=== PATIENT | male | born 1945 | race Caucasian/White ===

== ENCOUNTER → 2016-10-06 | Outpatient (CLI) | payer OTHER ==
[2016-01-31 22:04] VITALS: BP 166/93
--- NOTE | 2016-10-06 09:15 | VAS ---
Examination: Right leg DVT study Clinical History: Pain in right thigh. Technique: Duplex Doppler ultrasound utilizing kerns scale imaging and spectral analysis with color/d uplex imaging was used to evaluate the deep venous system of the right leg from the calf to the groi n. Comparison: None available. Findings: There is normal flow, compressibility and augmentation of the common femoral-, femoral-, popliteal-, and posterior tibial veins. The peroneal and anterior tibial veins were not interrogated. There is no sonographic evidence of a deep venous thrombosis in the right leg. Incidental note is made of a 1.7 x 1.6 x 3.2 cm ill-defined hypoechoic area in the right inguinal re gion, of uncertain etiology. Findings could represent an area of hemorrhage or a mass lesion. A CT o f the Pelvis, with and without intravenous contrast, is recommended for proper characterization of t his finding. Impression: 1. There is no sonographic evidence of a deep venous thrombosis in the right leg. 2. Incidental note is made of a 1.7 x 1.6 x 3.2 cm ill-defined hypoechoic area in the right inguinal region, of uncertain etiology. Findings could represent an area of hemorrhage or a mass lesion. A C T of the Pelvis, with and without intravenous contrast, is recommended for proper characterization o f this finding. Reported By:
== END ==
LOC: RAD 08:44
PROVIDERS: ATTEND Internal Medicine
DX: M79.651 Pain in right thigh (principal)
CPT/HCPCS: 93971

== ENCOUNTER → 2016-10-22 | Outpatient (CLI) | payer OTHER ==
[2016-01-31 22:04] VITALS: BP 166/93
--- NOTE | 2016-10-25 09:45 | CT ---
CT OF THE PELVIS WITHOUT CONTRAST CLINICAL INDICATION: Question of right groin mass on ultrasound PROCEDURE: Non contrast images through the pelvis were obtained. Oral contrast was also administered . Dose reduction techniques including Automated Exposure Control (AEC) and adjustment of mA and kV w ere utlized. COMPARISON: Ultrasound 10/06/2016 FINDINGS: CT Pelvis with contrast: The bladder is normal in appearance. Prostate is not enlarged. No suspiciou s pelvic lymph nodes. No free fluid or fluid collections. There are fatty replaced lymph nodes withi n the groin bilaterally. No abnormal soft tissue masses. No abnormality in the region of palpable ma rker No aggressive osseous lesions. IMPRESSION: 1. No abnormal soft tissue masses. Normal fatty replaced lymph nodes in the inguinal regions. No abn ormality in the region of palpable marker. Reported By:
== END ==
LOC: RAD 09:40
PROVIDERS: ATTEND Internal Medicine
DX: R93.8 Abnormal findings on diagnostic imaging of other specified body structures (principal); M79.651 Pain in right thigh; R19.09 Other intra-abdominal and pelvic swelling, mass and lump
CPT/HCPCS: 36415; 72192; 82565; 84520

== ENCOUNTER 2019-07-22 09:47 | Inpatient (IN) ==
[2019-07-22 10:04] VITALS: BMI 31.3
[2019-07-22 10:31] LABS: BASOPHILS # (AUTO) 0.1 X10^3/uL (0.0-0.1); BASOPHILS % (AUTO) 0.5 % (0.2-1.0); EOSINOPHILS # (AUTO) 0.1 x10^3/uL (0.0-0.2); EOSINOPHILS % (AUTO) 0.8 % (0.9-2.9); HEMATOCRIT 44.5 % (42.0-54.0); HEMOGLOBIN 15.3 g/dL (13.5-18.0); LYMPHOCYTES # (AUTO) 0.9 X10^3/uL (1.3-2.9); LYMPHOCYTES % (AUTO) 7.8 % (21.0-51.0); MEAN CORPUSCULAR HEMOGLOBIN 32.1 pg (27.0-34.0); MEAN CORPUSCULAR HGB CONC 34.4 g/dL (33.0-35.0); MEAN CORPUSCULAR VOLUME 93.4 fL (80.0-100.0); MEAN PLATELET VOLUME 6.9 fL (7.4-11.0); MONOCYTES # (AUTO) 0.5 x10^3/uL (0.3-0.8); MONOCYTES % (AUTO) 4.4 % (0.0-13.0); NEUTROPHILS # (AUTO) 10.2 x10^3/uL (2.2-4.8); NEUTROPHILS % (AUTO) 86.5 % (42.0-75.0); PLATELET COUNT 171 X10^3/uL (150.0-450.0); RED BLOOD COUNT 4.77 X10^6/uL (4.7-6.0); RED CELL DISTRIBUTION WIDTH 12.7 % (11.6-16.5); WHITE BLOOD COUNT 11.8 X10^3/uL (3.6-10.0)
[2019-07-22] MEDS ORDERED: NS 1000 ML 1,000 ML IV ONE (10:39)
[2019-07-22 10:41] LABS: ALANINE AMINOTRANSFERASE 48 Units/L (12-78); ALBUMIN 3.4 g/dL (3.4-5.0); ALKALINE PHOSPHATASE 78 Units/L (46-116); ASPARTATE AMINO TRANSFERASE 30 Units/L (15-37); BLOOD UREA NITROGEN 14 mg/dL (7-18); CALCIUM 8.4 mg/dL (8.5-10.1); CARBON DIOXIDE 28.2 mmol/L (21-32); CHLORIDE 99 mmol/L (98-107); COR NA(FOR HYPERGLY) 141 mmol/L (136-145); CREATININE 1.48 mg/dL (0.70-1.30); LIPASE 169 Units/L (73-393); SODIUM 136 mmol/L (136-145); TOTAL PROTEIN 7.1 g/dL (6.4-8.2); eGFR NON BLACK RACES 50 (>60)
[2019-07-22] MEDS ORDERED: HumuLIN R SUBCUT ONE (10:41)
[2019-07-22] MEDS ORDERED: NS 500 ML IV 500 ML IV ONE (10:46)
[2019-07-22] MEDS ORDERED: HumuLIN R ONE (10:48)
[2019-07-22 11:07] LABS: BILIRUBIN,URINE NEGATIVE (NEGATIVE); BLOOD/HEMOGLOBIN,URINE 1+ (NEGATIVE); GLUCOSE, URINE 4+ (NEGATIVE); KETONES,URINE NEGATIVE (NEGATIVE); LEUKOCYTE ESTERASE ,URINE NEGATIVE (NEGATIVE); NITRITES,URINE NEGATIVE (NEGATIVE); PROTEIN,URINE 2+ (NEGATIVE); UROBILINOGEN,URINE NORMAL (NORMAL)
[2019-07-22 11:16] LABS: APPEARANCE,URINE CLEAR (CLEAR); COLOR,URINE YELLOW (YELLOW); RBC,URINE 0-2 /HPF (0-3)
[2019-07-22 11:17] LABS: BACTERIA,URINE NEGATIVE /HPF (NEGATIVE); SQUAMOUS EPITHELIAL CELL,UR RARE /HPF (NEGATIVE)
[2019-07-22 11:40] LABS: CRYPTOSPORIDIUM PARVUM ANTIGEN NEGATIVE (NEGATIVE); GIARDIA LAMBLIA ANTIGEN NEGATIVE (NEGATIVE)
--- NOTE | 2019-07-22 13:30 | CT ---
HISTORYAbdominal pain with elevated blood sugarSTUDYABDOMEN/PELVIS WITH CONCOMPARISONNone availableTECHNIQUEMultiple axial images of the abdomen and pelvis were obtained from the lung bases to the pubic symphysis after the administration of IV contrast. Dose reduction techniques including Automated Exposure Control (AEC) and adjustment of mA and kV were utilized.FINDINGS[The lung bases are clear. No focal hepatic lesion is identified. There is gallbladder distention, increased mucosal enhancement and submucosal edema within the gallbladder consistent with cholecystitis. No calcified stone identified. Bile ducts are normal in caliber. The spleen, pancreas and adrenal glands are normal. Neither kidney demonstrates evidence of nephrolithiasis, hydronephrosis or mass. Upper GI tract is without evidence of mass or obstruction. Urinary bladder is normal. Prostate gland is normal. The rectum is normal. There is mild bowel wall thickening involving the sigmoid colon with increased fluid distention of the distal colon. The terminal ileum and appendix are normal. Abdominal aorta normal in caliber with scattered calcified atherosclerotic disease. No enlarged abdominal pelvic free fluid. Small amount of layering fluid noted within the pelvis. Review of bone windows demonstrates a grade 2 anterolisthesis of L5 secondary to bilateral spondylolysis causing moderate severe spinal canal and neural foraminal stenosis. No acute osseous abnormality.IMPRESSIONGallbladder wall edema, submucosal enhancement and gallbladder distention are highly suspicious for acute cholecystitis. No calcified gallstone identified. Correlation with right upper quadrant sonogram can be performed for confirmation as clinically warranted.Mild distal colonic colitis/diverticulitis.Grade 2 anterolisthesis of L5 secondary to bilateral L5 spondylolysis causes moderate severe spinal canal and neural foraminal stenosisElectronically signed by: SINAN JONES (Jul 22, 2019 13:29:04)
--- NOTE | 2019-07-22 15:22 | DR.ABDMALE ---
HPI Time seen Time Seen by Provider: 07/22/19 10:09 PCP Primary Care Physician: [place] HPI comment HPI Comment: pt has had 2 bouts of c.diff. On his 2nd regimen of vancomycin. Also prescribed doxycycline. Feels terrible with weakness and abd pain. Complaint Chief Complaint:: PT C/O ABD PAIN AND > BLOOD SUGAR, ( 300'S ) THAT STARTED AT 0300 THIS ,,BR ( PT C/O PAIN IS SHARP AND ACHING TO HIS MID ABD ) PT C/O HAVING A CJ-ANAL CYST THAT RUTURED ,BR Self Treatment fo Chief Complaint: ABX,, Reviewed Nurses Notes Review: Yes Source History provided by:: pt and Mode of arrival Mode of Arrival: Ambulatory Timing Onset of Chief Complaint: 07/21/19 Came on: Gradually Duration Duration: Weeks Location Location: Diffuse Severity Severity: Moderate Quality Quality: Aching and Cramping Context Onset: Unknown History of: None Modifying factors Worsening Factors: Nothing Improving Factors: Nothing Associated signs and symptoms Associated Signs and Symptoms: Nausea and Diarrhea; denies Vomiting and Dysuria PMH PMH Past Medical History: Yes Past Medical History: Diabetes and Hypertension Past Surgical History: Yes Surgical History: Ortho Surgery Family History History of Family Medical Conditions: No Social History Does patient currently use any type of tobacco product: No Have you used tobacco products in the last 12 months: No Type of Tobacco Use: None Does any household member use tobacco: No Alcohol Use: None Do you use any recreational Drugs:: No Lives With: Spouse Lives Where: Home infectious screening In the last 2 months have you had wt loss of >10#?: NO Have you had fever, night sweats or hemotysis?: No Have you traveled outside the country in the last 6 months?: No Isolation: Standard ROS Review of Systems Constitutional: No Symptoms Reported; negative Fever Respiratoy: No Symptoms Reported Cardiovascular: No Symptoms Reported Gastrointestinal/Abdominal: See HPI, Abdominal Pain and Diarrhea; negative Vomiting Genitourinary: No Symptoms Reported Neurological: No Symptoms Reported Musculoskeletal: No Symptoms Reported All Other Systems: Reviewed and Negative PE Vital Signs Vital Signs: Temp Pulse Resp BP BP Pulse Ox 07/22/19 09:59 98.0 F 73 18 165/80 95 06/24/19 14:27 127/81 General Limitations: No Limitations General Appearance: Alert, In No Apparent Distress and Other (is uncomfortable) Eyes Eye exam: Normal Appearance and EOMI; negative Scleral Icterus ENT ENT Exam: Mucous Membranes Dry Neck Neck Exam: Full ROM Chest Chest Inspection: Symmetric Chest Wall Rise Respiratory Respiratory Exam: Normal Lung Sounds Bilat Cardiovascular Cardiovascular Exam: Regular Rate and Normal Rhythm Abdominal Exam Abdominal Exam: Soft, Tenderness and Hyperactive Bowel Sounds; negative Guarding, Rebound and Rigidity Rectal Rectal Exam: Hemorrhoids and Other (there is a fairly large skin fold perianally, likely an abscess that has drained aand is not currently infected.) Back Back Exam: Normal Inspection and Full ROM Extremeties Extremities Exam: Normal Inspection and Full ROM Neurologic Neurological Exam: Alert and Oriented X3 Skin Skin Exam: Warm and Normal Color; negative Rash MDM Differential Diagnosis Differential Diagnosis: Diverticular disease and Inflammatory BD Other differential diagnosis: colitis COURSE Treatment Treatment: pt admitted for sigmoid diverticulitis, colitis, chlocystitis, and c.diff Reevaluation 1st: Unchanged ROR Labs Reviewed Laboratory Results Reviewed?: Yes Result Diagrams: 07/22/19 10:23 07/22/19 10:23 Laboratory: 07/22/19 10:30 Stool - Final WBC 11.8 X10^3/uL (3.6-10.0) H 07/22/19 10:23 RBC 4.77 X10^6/uL (4.7-6.0) 07/22/19 10:23 Hgb 15.3 g/dL (13.5-18.0) 07/22/19 10:23 Hct 44.5 % (42.0-54.0) 07/22/19 10:23 MCV 93.4 fL (80.0-100.0) 07/22/19 10:23 MCH 32.1 pg (27.0-34.0) 07/22/19 10:23 MCHC 34.4 g/dL (33.0-35.0) 07/22/19 10:23 RDW 12.7 % (11.6-16.5) 07/22/19 10:23 Plt Count 171 X10^3/uL (150.0-450.0) 07/22/19 10:23 MPV 6.9 fL (7.4-11.0) L 07/22/19 10:23 Neut % (Auto) 86.5 % (42.0-75.0) H 07/22/19 10:23 Lymph % (Auto) 7.8 % (21.0-51.0) L 07/22/19 10:23 [place] % (Auto) 4.4 % (0.0-13.0) 07/22/19 10:23 Eos % (Auto) 0.8 % (0.9-2.9) L 07/22/19 10:23 Baso % (Auto) 0.5 % (0.2-1.0) 07/22/19 10:23 Neut # (Auto) 10.2 x10^3/uL (2.2-4.8) H 07/22/19 10:23 Lymph # (Auto) 0.9 X10^3/uL (1.3-2.9) L 07/22/19 10:23 [place] # (Auto) 0.5 x10^3/uL (0.3-0.8) 07/22/19 10:23 Eos # (Auto) 0.1 x10^3/uL (0.0-0.2) 07/22/19 10:23 Baso # (Auto) 0.1 X10^3/uL (0.0-0.1) 07/22/19 10:23 Absolute Nucleated RBC 0.0 /100WBC 07/22/19 10:23 Sodium 136 mmol/L (136-145) 07/22/19 10:23 Corrected Sodium 141 mmol/L (136-145) 07/22/19 10:23 Potassium 3.8 mmol/L (3.5-5.1) 07/22/19 10:23 Chloride 99 mmol/L (98-107) 07/22/19 10:23 Carbon Dioxide 28.2 mmol/L (21-32) 07/22/19 10:23 BUN 14 mg/dL (7-18) 07/22/19 10:23 Creatinine 1.48 mg/dL (0.70-1.30) H 07/22/19 10:23 Est GFR (MDRD) Af Amer 60 (>60) 07/22/19 10:23 Est GFR (MDRD) Non-Af 50 (>60) L 07/22/19 10:23 Glucose 290 mg/dL (65-99) H 07/22/19 10:23 POC Glucose (mg/dL) 271 mg/dL (65-99) H 07/22/19 10:22 Calcium 8.4 mg/dL (8.5-10.1) L 07/22/19 10:23 Corrected Calcium TNP 07/22/19 10:23 Total Bilirubin 1.00 mg/dL (0.2-1.0) 07/22/19 10:23 AST 30 Units/L (15-37) 07/22/19 10:23 ALT 48 Units/L (12-78) 07/22/19 10:23 Alkaline Phosphatase 78 Units/L (46-116) 07/22/19 10:23 Total Protein 7.1 g/dL (6.4-8.2) 07/22/19 10:23 Albumin 3.4 g/dL (3.4-5.0) 07/22/19 10:23 Globulin 3.7 g/dL (2.5-4.5) 07/22/19 10:23 Albumin/Globulin Ratio 0.9 Ratio (1.1-2.1) L 07/22/19 10:23 Lipase 169 Units/L (73-393) 07/22/19 10:23 Specimen Type Clean catch urine 07/22/19 10:30 Urine Color Yellow (YELLOW) 07/22/19 10:30 Urine Appearance Clear (CLEAR) 07/22/19 10:30 Urine pH 5.0 (5.0 - 8.0) 07/22/19 10:30 Ur Specific [place] 1.015 (1.000-1.030) 07/22/19 10:30 Urine Protein 2+ (NEGATIVE) 07/22/19 10:30 Urine Glucose (UA) 4+ (NEGATIVE) 07/22/19 10:30 Urine Ketones Negative (NEGATIVE) 07/22/19 10:30 Urine Occult Blood 1+ (NEGATIVE) 07/22/19 10:30 Urine Nitrite Negative (NEGATIVE) 07/22/19 10:30 Urine Bilirubin Negative (NEGATIVE) 07/22/19 10:30 Urine Urobilinogen Normal (NORMAL) 07/22/19 10:30 Ur Leukocyte Esterase Negative (NEGATIVE) 07/22/19 10:30 Urine RBC 0-2 /HPF (0-3) 07/22/19 10:30 Urine WBC None seen /HPF (0-5) 07/22/19 10:30 Ur Squamous Epith Cells Rare /HPF (NEGATIVE) 07/22/19 10:30 Urine Bacteria Negative /HPF (NEGATIVE) 07/22/19 10:30 Ur Culture Indicated? No/not indicated 07/22/19 10:30 Stool Description 20g,brown,unformed 07/22/19 10:30 Stool Description 20g,brown,unformed 07/22/19 10:30 Stl Occult Blood (IFOB) Positive (NEGATIVE) A 07/22/19 10:30 Stool for White Cells Positive (NEGATIVE) A 07/22/19 10:30 Stl C. diff Tox B Gene Negative (NEGATIVE) 07/22/19 10:30 Stl C. diff 027-NAP1-BI Negative (NEGATIVE) 07/22/19 10:30 Cryptosporid parvum Ag Negative (NEGATIVE) 07/22/19 10:30 Giardia lamblia Ag Negative (NEGATIVE) 07/22/19 10:30 XRAY XRAY Findings: CT abd shows colitis sigmoid and cholecystitis Opioid Opioid Risk Tool Age (Alessio box if 16-45): No History of Preadolescent Sexual Abuse: No Total: 0 Total Score Risk Category: Low Risk Copyright: Amilcar MONTERO predicting aberrant behaviors Instructions Forms: Excuse From Work Patient Portal ADDITIONAL NOTES Additional Notes Additional Notes: pt admitted as inpatient for diverticulitis, cholecystitis, c.diff diarrhea, colitis
[2019-07-22] MEDS ORDERED: FORTAZ or TAZICEF VIAL INJ ONE (15:46)
[2019-07-22] MEDS ORDERED: NS 100 ML IV 100 ML IV ONE (15:46)
[2019-07-22] MEDS ORDERED: NS 1000 ML 1,000 ML ONE (15:50)
[2019-07-22] MEDS: FORTAZ or TAZICEF VIAL INJ 1 G in NS 100 ML IV + SPIKE MINIBAG* 100 ML IV SCH ×2 (15:52→22:00)
[2019-07-22] MEDS: NS 1000 ML 1,000 ML IV SCH (15:52)
[2019-07-22] MEDS: VANCOMYCIN 125 MG PO SCH ×2 (17:09→22:30)
[2019-07-22] MEDS ORDERED: AFLURIA II4 or FLUARIX II4 IM ONE (17:23)
[2019-07-22] MEDS: HumuLIN R SC PRN (22:00)
[2019-07-23] MEDS: FORTAZ or TAZICEF VIAL INJ 1 G in NS 100 ML IV + SPIKE MINIBAG* 100 ML IV SCH ×3 (05:06→20:53)
[2019-07-23] MEDS: VANCOMYCIN 125 MG PO SCH ×4 (05:06→22:30)
[2019-07-23 05:48] LABS: BASOPHILS # (AUTO) 0.1 X10^3/uL (0.0-0.1); BASOPHILS % (AUTO) 0.9 % (0.2-1.0); EOSINOPHILS # (AUTO) 0.2 x10^3/uL (0.0-0.2); EOSINOPHILS % (AUTO) 3.3 % (0.9-2.9); HEMATOCRIT 38.2 % (42.0-54.0); HEMOGLOBIN 13.5 g/dL (13.5-18.0); LYMPHOCYTES # (AUTO) 1.4 X10^3/uL (1.3-2.9); LYMPHOCYTES % (AUTO) 20.7 % (21.0-51.0); MEAN CORPUSCULAR HEMOGLOBIN 33.2 pg (27.0-34.0); MEAN CORPUSCULAR HGB CONC 35.3 g/dL (33.0-35.0); MEAN PLATELET VOLUME 7.6 fL (7.4-11.0); MONOCYTES # (AUTO) 0.5 x10^3/uL (0.3-0.8); MONOCYTES % (AUTO) 7.4 % (0.0-13.0); NEUTROPHILS # (AUTO) 4.6 x10^3/uL (2.2-4.8); NEUTROPHILS % (AUTO) 67.7 % (42.0-75.0); PLATELET COUNT 146 X10^3/uL (150.0-450.0); RED BLOOD COUNT 4.06 X10^6/uL (4.7-6.0); RED CELL DISTRIBUTION WIDTH 12.7 % (11.6-16.5); WHITE BLOOD COUNT 6.7 X10^3/uL (3.6-10.0)
[2019-07-23 06:04] LABS: ALBUMIN 2.4 g/dL (3.4-5.0); CALCIUM 7.5 mg/dL (8.5-10.1); CARBON DIOXIDE 24.5 mmol/L (21-32); COR CA(FOR HYPOALB) 8.8 mg/dL (8.5-10.1); CREATININE 1.48 mg/dL (0.70-1.30); TOTAL PROTEIN 5.4 g/dL (6.4-8.2)
[2019-07-23] MEDS: HumuLIN R SC PRN (06:17)
[2019-07-23] MEDS ORDERED: POTASSIUM CHL 40 MEQ/NS 0.45% 500 ML IV PRN (06:18)
[2019-07-23] MEDS ORDERED: K-RIDER 10 MEQ/NS 100 ML 10 MEQ/100 ML BAG IV PRN (06:18)
[2019-07-23] MEDS ORDERED: POTASSIUM CHL 60 MEQ/NS 0.45% 500 ML IV PRN (06:18)
[2019-07-23] MEDS ORDERED: MICRO K EXTEN CAP 10 MEQ PO PRN (06:18)
[2019-07-23] MEDS ORDERED: K-DUR TAB 20 MEQ PO PRN (06:18)
[2019-07-23] MEDS ORDERED: KLOR-CON PO PRN (06:18)
[2019-07-23] MEDS ORDERED: POTASSIUM CHLORIDE LIQ 20 MEQ UDC PO PRN (06:18)
[2019-07-23] MEDS ORDERED: DIPRIVAN VIAL ONE (08:22)
[2019-07-23] MEDS ORDERED: SUPRANE ONE (08:22)
[2019-07-23] MEDS ORDERED: NORCURON INJ 10 MG VIAL ONE (08:22)
[2019-07-23] MEDS ORDERED: LTA KIT LIDOCAINE 4% ONE (08:22)
[2019-07-23] MEDS: LOVENOX INJ 40 MG SYR SC SCH (08:22)
[2019-07-23] MEDS ORDERED: ROBINUL ONE (08:22)
[2019-07-23] MEDS ORDERED: ZOFRAN INJ 4 MG VIAL ONE (08:22)
[2019-07-23] MEDS ORDERED: XYLOCAINE 2 % (PLAIN) ONE (08:22)
[2019-07-23] MEDS ORDERED: NEOSTIGMINE INJ ONE (08:22)
[2019-07-23] MEDS ORDERED: QUELICIN (OR ANECTINE) ONE (08:22)
[2019-07-23] MEDS ORDERED: VERSED ONE (08:22)
[2019-07-23] MEDS: NS 1000 ML 1,000 ML IV SCH ×3 (08:26→17:16)
--- NOTE | 2019-07-23 08:53 | DR.H&P ---
H&P - History & Physical for Day of: H&P Date: 07/22/19 - Chief Complaint Chief Complaint: ABDOMINAL PAIN, INCREASED BLOOD GLUCOSE LEVELS - History of Present Illness History of Present Illness: IS A 74 YEAR OLD PATIENT OF OURS. HE P RESENTED TO THE ER WITH COMPLAINTS OF ABDOMINAL PAIN AND INCREASED BLOOD GLUCOSE LEVELS. HE REPORTS THAT HIS BLOOD GLUCOSE HAS BEEN GREATER THAN 300 FOR THE PAST TWO DAYS. HE DESCRIBES PAIN SHARP, ACHING, AND IS AT THE MID ABDOMEN. HE REPORTS HAVING A PERIANAL CYST THAT RUPTURED. HE WAS ALSO DIAGNOSED WITH C.DIFF ON 07/13/19. HE HAS BEEN TAKING PO VANCOMYCIN SINCE 07/13. ASSOCIATED SYMPTOMS INCLUDE NAUSEA AND DIARRHEA. HE DENIES VOMITING. ON ARRIVAL, VITALS WERE 98.0-73-18-95%-165/80. LABS WERE OBTAINED. ABNORMAL LAB VALUES INCLUDE THE FOLLOWING: WBC 11.8, CREATININE 1.48, GLUCOSE 290, CALCIUM 8.4. URINALYSIS IS UNREMARKABLE. STOOL IS POSITIVE FOR OCCULT BLOOD AND WHITE CELLS. STOOL CULTURE IS POSTIVE FOR CAMYLOBACTER. AN ABDOMEN/PELVIS CT WITH CONTRAST WAS OBTAINED AND REVEALED: Gallbladder wall edema, submucosal enhancement and gallbladder distention are highly suspicious for acute cholecystitis. No calcified gallstone identified. Correlation with right upper quadrant sonogram can be performed for confirmation as clinically warranted. Mild distal colonic colitis/diverticulitis. Grade 2 anterolisthesis of L5 secondary to bilateral L5 spondylolysis causes moderate severe spinal canal and neural foraminal stenosis. HE WAS GIVEN A NORMAL SALINE BOLUS, HUMULIN R 4 UNITS X 1, AND FORTAZ 1G IV X 1 DOSE IN THE ER. HE WAS ADMITTED FOR FURTHER EVALUATION AND TREATMENT OF DIVERTICULTIS, COLIITS, CHOLECYSTITIS, AND C DIFF DIARRHEA. WE STARTED NORMAL SALINE AT 125ML/HR, LEVAQUIN 500MG IV DAILY, FORTAZ 1G IV Q12H, HUMULIN R SLIDIDNG SCALE, LOVENOX 40MG SC DAILY, AND THE POTASSIUM AND MAGNESIUM PROTOCOLS. WE CONSULTED WITH , GENERAL SURGEON REGUARDING PATIENTS SYMPTOMS AND TREATMENT. HE RECOMMENDS A GALLBLADDER ULTRASOUND AND POSSIBLE LAPCHOLE, DEPENDING ON FINDINGS OF ULTRASOUND. WE DISCUSSED PLAN OF CARE WITH PATIENT. WE ARE ALL IN AGREEMENT WITH PLANS. TIME SPENT WITH PHYSICIAN AND PATIENT WAS GREATER THAN 16 MINUTES. OTHERWISE, WE PLAN TO FOLLOW UP WITH AM LABS AND CONTINUE TO MONITOR. - Past Medical History Past Medical History: Hypertension, Diabetes - Past Surgical History Surgical History: Ortho Surgery - Social History Does patient currently use any type of tobacco product: No Have you used tobacco products in the last 12 months: No Type of Tobacco Use: None Does any household member use tobacco: No Alcohol Use: None Drug Use: None - Medications Home Medications: No Known Drug Allergies Allergy (Verified 07/22/19 09:59) CONTINUE taking the following medications Lactobacillus acidoph-pectin 1 cap PO TID 07/22/19 [History] allopurinol 100 mg PO DAILY 07/22/19 [History] amlodipine 5 mg PO DAILY 07/22/19 [History] dicyclomine 10 mg PO BID PRN 07/22/19 [History] doxycycline monohydrate 100 mg PO BID 07/22/19 [History] glipizide 10 mg PO BID 07/22/19 [History] vancomycin 125 mg PO Q6H 07/22/19 [History] - Review of Systems Constitutional: Weakness Eyes: No Symptoms Reported ENT: No Symptoms Reported Respiratory: No Symptoms Reported Cardiovascular: No Symptoms Reported Gastrointestinal: See HPI, Nausea, Abdominal Pain, Diarrhea. denies: Vomiting Genitourinary: No Symptoms Reported Musculoskeletal: No Symptoms Reported Skin: No Symptoms Reported Neurological: Weakness - Physical Exam Vital Signs: Temperature 99.2 F Pulse Rate [Left Brachial] 76 Pulse Rate 73 Respiratory Rate 20 Blood Pressure [Left Arm] 135/74 Blood Pressure 165/80 O2 Sat by Pulse Oximetry 98 Oriented: Normal Eyes: Normal Ear: Normal Nose: Normal Throat: Normal Respiratory: Diminished Throughout Cardiovascular: Normal : Normal Auscultation: Bowel Sounds: Normal Palpation: Normal Tenderness: Diffuse, Moderate. negative: Rebound, Guarding, Rigidity Skin: Normal Musculoskeletal: Normal Psychiatric: Normal Mood Description: Calm Affect: Normal Speech Pattern: Clear - Assessment/Plan (1) Diverticulitis Status: Acute Plan: ADMIT, NORMAL SALINE AT 125ML/HR, LEVAQUIN 500MG IV DAILY, FORTAZ 1G IV Q12H, HUMULIN R SLIDIDNG SCALE, LOVENOX 40MG SC DAILY, SURGICAL CONSULT, CONTINUE TO MONITOR (2) Cholecystitis Status: Acute (3) C. difficile diarrhea Status: Acute (4) Colitis Status: Acute - Allergies Allergies/Adverse Reactions: Allergies Allergy/AdvReac Type Severity Reaction Status Date / Time No Known Drug Allergies Allergy Verified 07/22/19 09:59
[2019-07-23] MEDS ORDERED: LEVAQUIN PREMIX IV 500 MG 500 MG/100 ML BAG IV SCH (09:00)
[2019-07-23] MEDS: MAGNESIUM SULFATE 1 GRAM/100 mL PREMIX 1 GM/100 ML BAG IV PRN ×2 (11:16→12:54)
--- NOTE | 2019-07-23 13:32 | US ---
HISTORYAbdominal pain, abnormal gallbladder on CTSTUDYGallbladder sonogramTechnique: Multiple grayscale sonographic images were obtained.COMPARISONCT abdomen pelvis 07/22/2019FINDINGSThe liver was normal in size and configuration but increased in echogenicity suggestive of some element of fatty infiltration. No cysts, masses, or biliary ductal dilatation is identified. No gallstones are identified within the gallbladder. The there does appear to be some sludge present. There is some gallbladder wall thickening present. The common duct measured 2.7 mm. The right kidney was unobstructed and measured 10.3 cm in length. No solid masses, hydronephrosis, stones, or perinephric fluid collections. The pancreas was not well visualized.IMPRESSIONModerate gallbladder wall thickening but without visible calculi. Some sludge is present. If acute cholecystitis remains a clinical consideration nuclear medicine biliary scan is recommended for further evaluation.Electronically signed by: RAMEZ LYNN (Jul 23, 2019 13:30:43)
[2019-07-23] MEDS: FLAGYL IV PREMIX 500 MG BAG 500 MG/100 ML BAG IV SCH ×2 (14:01→22:00)
[2019-07-23] MEDS ORDERED: NS IRRIGATION 3000 ML ONE (15:13)
[2019-07-23] MEDS ORDERED: FENTANYL INJ 250 mcg ONE (16:46)
[2019-07-23] MEDS ORDERED: ANCEF 1 GRAM IV PREMIX* 1 G/50 ML BAG IV ONE (16:48)
[2019-07-23] MEDS ORDERED: LR 1000 ML IV 1,000 ML IV ONE (16:52)
[2019-07-23] MEDS ORDERED: BACTROBAN TOPICAL OINT ONE (18:21)
[2019-07-23] MEDS: DILAUDID INJ IVP PRN ×4 (18:38→20:53)
[2019-07-23] MEDS ORDERED: DILAUDID INJ ONE ×2 (18:38→18:58)
[2019-07-23] MEDS ORDERED: PHENERGAN INJ 25 MG IM PRN (18:42)
[2019-07-23] MEDS ORDERED: BENADRYL INJ 50 MG VIAL IVP PRN (18:42)
[2019-07-23] MEDS ORDERED: REGLAN INJ 10 MG VIAL IVP PRN (18:42)
[2019-07-23] MEDS ORDERED: ZOFRAN INJ 4 MG VIAL IVP PRN (18:42)
[2019-07-24] MEDS: DILAUDID INJ IVP PRN ×6 (02:25→22:50)
[2019-07-24] MEDS: VANCOMYCIN 125 MG PO SCH ×4 (05:51→22:30)
[2019-07-24] MEDS: FLAGYL IV PREMIX 500 MG BAG 500 MG/100 ML BAG IV SCH ×3 (05:52→22:00)
[2019-07-24 06:29] LABS: BASOPHILS % (AUTO) 0.6 % (0.2-1.0); EOSINOPHILS # (AUTO) 0.1 x10^3/uL (0.0-0.2); EOSINOPHILS % (AUTO) 1.7 % (0.9-2.9); HEMATOCRIT 37.4 % (42.0-54.0); HEMOGLOBIN 12.9 g/dL (13.5-18.0); MEAN CORPUSCULAR HEMOGLOBIN 32.5 pg (27.0-34.0); MEAN CORPUSCULAR HGB CONC 34.6 g/dL (33.0-35.0); MONOCYTES # (AUTO) 0.4 x10^3/uL (0.3-0.8); MONOCYTES % (AUTO) 6.2 % (0.0-13.0); NEUTROPHILS % (AUTO) 76.5 % (42.0-75.0); PLATELET COUNT 143 X10^3/uL (150.0-450.0); RED BLOOD COUNT 3.98 X10^6/uL (4.7-6.0); RED CELL DISTRIBUTION WIDTH 12.6 % (11.6-16.5); WHITE BLOOD COUNT 6.6 X10^3/uL (3.6-10.0)
[2019-07-24 06:48] LABS: ALANINE AMINOTRANSFERASE 43 Units/L (12-78); ALBUMIN 2.3 g/dL (3.4-5.0); ALKALINE PHOSPHATASE 47 Units/L (46-116); ASPARTATE AMINO TRANSFERASE 41 Units/L (15-37); BLOOD UREA NITROGEN 12 mg/dL (7-18); CALCIUM 7.4 mg/dL (8.5-10.1); CARBON DIOXIDE 24.8 mmol/L (21-32); CHLORIDE 105 mmol/L (98-107); COR CA(FOR HYPOALB) 8.8 mg/dL (8.5-10.1); COR NA(FOR HYPERGLY) 141 mmol/L (136-145); CREATININE 1.37 mg/dL (0.70-1.30); SODIUM 139 mmol/L (136-145); TOTAL PROTEIN 5.4 g/dL (6.4-8.2); eGFR NON BLACK RACES 54 (>60)
[2019-07-24] MEDS ORDERED: LEVAQUIN PREMIX IV 250 MG 250 MG/50 ML BAG IV SCH (09:00)
[2019-07-24] MEDS: LOVENOX INJ 40 MG SYR SC SCH (09:09)
[2019-07-24] MEDS: NS 1000 ML 1,000 ML IV SCH ×3 (09:10→17:08)
[2019-07-24] MEDS: FORTAZ or TAZICEF VIAL INJ 1 G in NS 100 ML IV + SPIKE MINIBAG* 100 ML IV SCH (09:11)
[2019-07-24] MEDS: VIBRAMYCIN 100 MG in D5W 250 ML IV 250 ML IV SCH ×2 (12:17→22:00)
[2019-07-24] MEDS ORDERED: FENTANYL INJ 250 mcg ONE (13:32)
--- NOTE | 2019-07-24 15:07 | DR.PROGNOT ---
Hospital Progress Notes - Progress Note for Day of: Progress Note Date: 07/24/19 - Chief Complaint Chief Complaint: PO lap gigi lysis of adhesions . lab work was good . afebrile and tolerating diet well . ADELE was removed . - Past Medical Family Social History Past Med/Fam/Surg Hx: No changes since H&P Allergies: Allergies No Known Drug Allergies Allergy (Verified 07/22/19 09:59) - Review Of Systems ROS: No change since H&P - Vital Signs Vital Signs: Temperature 98.8 F Pulse Rate [Left Brachial] 71 Pulse Rate 60 Respiratory Rate 20 Blood Pressure [Left Arm] 138/75 Blood Pressure 163/85 O2 Sat by Pulse Oximetry 95 - Physical Exam Oriented: Normal Eyes: Normal Ear: Normal Nose: Normal Throat: Normal Cardiovascular: Normal : Normal GI:Auscultation: Normal GI:Palpation: Normal GI: Tenderness: Diffuse, Moderate. negative: Rebound, Guarding, Rigidity Skin: Normal Musculoskeletal: Normal Psychiatric: Normal Mood Description: Calm Affect: Normal Speech Pattern: Clear, Appropriate - Laboratory and Diagnostics Result Diagrams: 07/24/19 05:36 07/24/19 05:36 Labs: 07/22/19 10:30 Stool Stool Culture - Final 07/22/19 10:30 Stool - Final Laboratory WBC 6.6 X10^3/uL (3.6-10.0) 07/24/19 05:36 RBC 3.98 X10^6/uL (4.7-6.0) L 07/24/19 05:36 Hgb 12.9 g/dL (13.5-18.0) L 07/24/19 05:36 Hct 37.4 % (42.0-54.0) L 07/24/19 05:36 MCV 94.0 fL (80.0-100.0) 07/24/19 05:36 MCH 32.5 pg (27.0-34.0) 07/24/19 05:36 MCHC 34.6 g/dL (33.0-35.0) 07/24/19 05:36 RDW 12.6 % (11.6-16.5) 07/24/19 05:36 Plt Count 143 X10^3/uL (150.0-450.0) L 07/24/19 05:36 MPV 7.0 fL (7.4-11.0) L 07/24/19 05:36 Neut % (Auto) 76.5 % (42.0-75.0) H 07/24/19 05:36 Lymph % (Auto) 15.0 % (21.0-51.0) L 07/24/19 05:36 [place] % (Auto) 6.2 % (0.0-13.0) 07/24/19 05:36 Eos % (Auto) 1.7 % (0.9-2.9) 07/24/19 05:36 Baso % (Auto) 0.6 % (0.2-1.0) 07/24/19 05:36 Neut # (Auto) 5.0 x10^3/uL (2.2-4.8) H 07/24/19 05:36 Lymph # (Auto) 1.0 X10^3/uL (1.3-2.9) L 07/24/19 05:36 [place] # (Auto) 0.4 x10^3/uL (0.3-0.8) 07/24/19 05:36 Eos # (Auto) 0.1 x10^3/uL (0.0-0.2) 07/24/19 05:36 Baso # (Auto) 0.0 X10^3/uL (0.0-0.1) 07/24/19 05:36 Absolute Nucleated RBC 0.0 /100WBC 07/24/19 05:36 Sodium 139 mmol/L (136-145) 07/24/19 05:36 Corrected Sodium 141 mmol/L (136-145) 07/24/19 05:36 Potassium 3.7 mmol/L (3.5-5.1) 07/24/19 05:36 Chloride 105 mmol/L (98-107) 07/24/19 05:36 Carbon Dioxide 24.8 mmol/L (21-32) 07/24/19 05:36 BUN 12 mg/dL (7-18) 07/24/19 05:36 Creatinine 1.37 mg/dL (0.70-1.30) H 07/24/19 05:36 Est GFR (MDRD) Af Amer > 60 (>60) 07/24/19 05:36 Est GFR (MDRD) Non-Af 54 (>60) L 07/24/19 05:36 Glucose 172 mg/dL (65-99) H 07/24/19 05:36 POC Glucose (mg/dL) 203 mg/dL (65-99) H 07/23/19 05:21 Calcium 7.4 mg/dL (8.5-10.1) L 07/24/19 05:36 Corrected Calcium 8.8 mg/dL (8.5-10.1) 07/24/19 05:36 Magnesium 1.7 mg/dL (1.7-2.9) 07/23/19 05:00 Total Bilirubin 0.90 mg/dL (0.2-1.0) 07/24/19 05:36 AST 41 Units/L (15-37) H 07/24/19 05:36 ALT 43 Units/L (12-78) 07/24/19 05:36 Alkaline Phosphatase 47 Units/L (46-116) 07/24/19 05:36 Total Protein 5.4 g/dL (6.4-8.2) L 07/24/19 05:36 Albumin 2.3 g/dL (3.4-5.0) L 07/24/19 05:36 Globulin 3.1 g/dL (2.5-4.5) 07/24/19 05:36 Albumin/Globulin Ratio 0.7 Ratio (1.1-2.1) L 07/24/19 05:36 Lipase 169 Units/L (73-393) 07/22/19 10:23 Specimen Type Clean catch urine 07/22/19 10:30 Urine Color Yellow (YELLOW) 07/22/19 10:30 Urine Appearance Clear (CLEAR) 07/22/19 10:30 Urine pH 5.0 (5.0 - 8.0) 07/22/19 10:30 Ur Specific [place] 1.015 (1.000-1.030) 07/22/19 10:30 Urine Protein 2+ (NEGATIVE) 07/22/19 10:30 Urine Glucose (UA) 4+ (NEGATIVE) 07/22/19 10:30 Urine Ketones Negative (NEGATIVE) 07/22/19 10:30 Urine Occult Blood 1+ (NEGATIVE) 07/22/19 10:30 Urine Nitrite Negative (NEGATIVE) 07/22/19 10:30 Urine Bilirubin Negative (NEGATIVE) 07/22/19 10:30 Urine Urobilinogen Normal (NORMAL) 07/22/19 10:30 Ur Leukocyte Esterase Negative (NEGATIVE) 07/22/19 10:30 Urine RBC 0-2 /HPF (0-3) 07/22/19 10:30 Urine WBC None seen /HPF (0-5) 07/22/19 10:30 Ur Squamous Epith Cells Rare /HPF (NEGATIVE) 07/22/19 10:30 Urine Bacteria Negative /HPF (NEGATIVE) 07/22/19 10:30 Ur Culture Indicated? No/not indicated 07/22/19 10:30 Stool Description 20g,brown,unformed 07/22/19 10:30 Stool Description 20g,brown,unformed 07/22/19 10:30 Stl Occult Blood (IFOB) Positive (NEGATIVE) A 07/22/19 10:30 Stool for White Cells Positive (NEGATIVE) A 07/22/19 10:30 Stl C. diff Tox B Gene Negative (NEGATIVE) 07/22/19 10:30 Stl C. diff 027-NAP1-BI Negative (NEGATIVE) 07/22/19 10:30 Cryptosporid parvum Ag Negative (NEGATIVE) 07/22/19 10:30 Giardia lamblia Ag Negative (NEGATIVE) 07/22/19 10:30 Tissue Pathology To follow 07/23/19 18:08 - Assessment and Plan 1: PO lap gigi and drainage of thrombosed hemorrhoid . recent D Dif colitis . same PO care and will follow in 10 days .. - Problem Patient Problems: Patient Problems Diverticulitis (Acute) K57.92 Cholecystitis (Acute) K81.9 C. difficile diarrhea (Acute) A04.72 Colitis (Acute) K52.9
[2019-07-24] MEDS: HumuLIN R SC PRN (17:08)
--- NOTE | 2019-07-24 20:24 | PCM.PROG ---
Progress Note - Progress Note for Day of Date of Exam: 07/24/19 - Subjective Subjective: WAS ADMITTED FOR DIVERTICULTIS, COLIITS, CHOLECYSTITIS, AND DIARRHEA DUE TO CAMPYLOBACTER. A GALLBLADDER US WAS OBTAINED YESTERDAY AND REVEALED MODERATE GALLBLADDER WALL THICKENING AND SLUDGE. TOOK PATIENT TO THE OR YESTERDAY FOR A LAPCHOLE. A ADELE DRAIN WAS PLACED. TODAY, HE IS ALERT AND ORIENTED, LYING IN BED ON MORNING ROUNDS. HE CONTINUES WITH DIFFUSE ABDOMINAL PAIN, BUT REPORTS SLIGHT IMPROVEMENT IN SYMPTOMS. MINIMAL DRAINAGE NOTED IN ADELE DRAIN. DRESSINGS NOTED TO ABDOMEN ARE DRY AND INTACT WITH NO S/SX INFECTION NOTED. HIS VITALS THIS MORNING ARE: 98.0-68-2097%-133/70. LABS WERE OBTAINED. ABNORMAL LAB VALUES INCLUDE THE FOLLOWING: RBC 3.98, HGB 12.9, HCT 37.4, PLT COUNT 143, CREATININE 1.37, GLUCOSE 172, CALCIUM 7.4, AST 41, TOTAL PROTEIN 5.4, ALBUMIN 2.3. HE IS CURRENTLY RECEIVING IV FORTAZ, IV LEVAQUIN, DILAUDID 1MG IV Q4H PRN PAIN, HUMULIN R SLIDING SCALE, FLAGYL 500MG IV Q8H, AND THE POTASSIUM AND MAGNESIUM PROTOCOLS. WE WILL DISCONTINUE THE FORTAZ AND LEVAQUIN TODAY AND START DOXYCYCLINE 100MG IV Q12H. OTHERWISE, WE PLAN TO FOLLOW UP WITH AM LABS AND CONTINUE TO MONITOR. - Past Medical Family Social History Past Med/Fam/Surg Hx: No changes since H&P Allergies: Allergies No Known Drug Allergies Allergy (Verified 07/22/19 09:59) - Review of Systems ROS: No change since H&P - Vital Signs and I&O's Vital Signs: Temperature 99.3 F Pulse Rate [Left Brachial] 69 Pulse Rate 60 Respiratory Rate 18 Blood Pressure [Left Arm] 141/81 Blood Pressure 163/85 O2 Sat by Pulse Oximetry 95 Intake and Output: Intake & Output 07/22/19 07/23/19 07/24/19 07/25/19 11:59 11:59 11:59 11:59 Intake Total 680 / 680 4935 / 4935 1605 / 1605 Output Total 1650 / 1650 Balance 680 / 680 3285 / 3285 1605 / 1605 - Physical Exam Oriented: Normal Eyes: Normal Ear: Normal Nose: Normal Throat: Normal Cardiovascular: Normal : Normal Auscultation: Bowel Sounds: Normal Palpation: Normal Tenderness: Diffuse, Mild. negative: Rebound, Guarding, Rigidity Skin: Normal, Other (ADELE DRAIN IN PLACE WITH MINIMAL DRAINAGE) Musculoskeletal: Normal Psychiatric: Normal Mood Description: Calm Affect: Normal Speech Pattern: Clear, Appropriate - Laboratory and Diagnostics Result Diagrams: 07/24/19 05:36 07/24/19 05:36 Labs: 07/22/19 10:30 Stool Stool Culture - Final 07/22/19 10:30 Stool - Final Laboratory WBC 6.6 X10^3/uL (3.6-10.0) 07/24/19 05:36 RBC 3.98 X10^6/uL (4.7-6.0) L 07/24/19 05:36 Hgb 12.9 g/dL (13.5-18.0) L 07/24/19 05:36 Hct 37.4 % (42.0-54.0) L 07/24/19 05:36 MCV 94.0 fL (80.0-100.0) 07/24/19 05:36 MCH 32.5 pg (27.0-34.0) 07/24/19 05:36 MCHC 34.6 g/dL (33.0-35.0) 07/24/19 05:36 RDW 12.6 % (11.6-16.5) 07/24/19 05:36 Plt Count 143 X10^3/uL (150.0-450.0) L 07/24/19 05:36 MPV 7.0 fL (7.4-11.0) L 07/24/19 05:36 Neut % (Auto) 76.5 % (42.0-75.0) H 07/24/19 05:36 Lymph % (Auto) 15.0 % (21.0-51.0) L 07/24/19 05:36 [place] % (Auto) 6.2 % (0.0-13.0) 07/24/19 05:36 Eos % (Auto) 1.7 % (0.9-2.9) 07/24/19 05:36 Baso % (Auto) 0.6 % (0.2-1.0) 07/24/19 05:36 Neut # (Auto) 5.0 x10^3/uL (2.2-4.8) H 07/24/19 05:36 Lymph # (Auto) 1.0 X10^3/uL (1.3-2.9) L 07/24/19 05:36 [place] # (Auto) 0.4 x10^3/uL (0.3-0.8) 07/24/19 05:36 Eos # (Auto) 0.1 x10^3/uL (0.0-0.2) 07/24/19 05:36 Baso # (Auto) 0.0 X10^3/uL (0.0-0.1) 07/24/19 05:36 Absolute Nucleated RBC 0.0 /100WBC 07/24/19 05:36 Sodium 139 mmol/L (136-145) 07/24/19 05:36 Corrected Sodium 141 mmol/L (136-145) 07/24/19 05:36 Potassium 3.7 mmol/L (3.5-5.1) 07/24/19 05:36 Chloride 105 mmol/L (98-107) 07/24/19 05:36 Carbon Dioxide 24.8 mmol/L (21-32) 07/24/19 05:36 BUN 12 mg/dL (7-18) 07/24/19 05:36 Creatinine 1.37 mg/dL (0.70-1.30) H 07/24/19 05:36 Est GFR (MDRD) Af Amer > 60 (>60) 07/24/19 05:36 Est GFR (MDRD) Non-Af 54 (>60) L 07/24/19 05:36 Glucose 172 mg/dL (65-99) H 07/24/19 05:36 POC Glucose (mg/dL) 203 mg/dL (65-99) H 07/23/19 05:21 Calcium 7.4 mg/dL (8.5-10.1) L 07/24/19 05:36 Corrected Calcium 8.8 mg/dL (8.5-10.1) 07/24/19 05:36 Magnesium 1.7 mg/dL (1.7-2.9) 07/23/19 05:00 Total Bilirubin 0.90 mg/dL (0.2-1.0) 07/24/19 05:36 AST 41 Units/L (15-37) H 07/24/19 05:36 ALT 43 Units/L (12-78) 07/24/19 05:36 Alkaline Phosphatase 47 Units/L (46-116) 07/24/19 05:36 Total Protein 5.4 g/dL (6.4-8.2) L 07/24/19 05:36 Albumin 2.3 g/dL (3.4-5.0) L 07/24/19 05:36 Globulin 3.1 g/dL (2.5-4.5) 07/24/19 05:36 Albumin/Globulin Ratio 0.7 Ratio (1.1-2.1) L 07/24/19 05:36 Lipase 169 Units/L (73-393) 07/22/19 10:23 Specimen Type Clean catch urine 07/22/19 10:30 Urine Color Yellow (YELLOW) 07/22/19 10:30 Urine Appearance Clear (CLEAR) 07/22/19 10:30 Urine pH 5.0 (5.0 - 8.0) 07/22/19 10:30 Ur Specific [place] 1.015 (1.000-1.030) 07/22/19 10:30 Urine Protein 2+ (NEGATIVE) 07/22/19 10:30 Urine Glucose (UA) 4+ (NEGATIVE) 07/22/19 10:30 Urine Ketones Negative (NEGATIVE) 07/22/19 10:30 Urine Occult Blood 1+ (NEGATIVE) 07/22/19 10:30 Urine Nitrite Negative (NEGATIVE) 07/22/19 10:30 Urine Bilirubin Negative (NEGATIVE) 07/22/19 10:30 Urine Urobilinogen Normal (NORMAL) 07/22/19 10:30 Ur Leukocyte Esterase Negative (NEGATIVE) 07/22/19 10:30 Urine RBC 0-2 /HPF (0-3) 07/22/19 10:30 Urine WBC None seen /HPF (0-5) 07/22/19 10:30 Ur Squamous Epith Cells Rare /HPF (NEGATIVE) 07/22/19 10:30 Urine Bacteria Negative /HPF (NEGATIVE) 07/22/19 10:30 Ur Culture Indicated? No/not indicated 07/22/19 10:30 Stool Description 20g,brown,unformed 07/22/19 10:30 Stool Description 20g,brown,unformed 07/22/19 10:30 Stl Occult Blood (IFOB) Positive (NEGATIVE) A 07/22/19 10:30 Stool for White Cells Positive (NEGATIVE) A 07/22/19 10:30 Stl C. diff Tox B Gene Negative (NEGATIVE) 07/22/19 10:30 Stl C. diff 027-NAP1-BI Negative (NEGATIVE) 07/22/19 10:30 Cryptosporid parvum Ag Negative (NEGATIVE) 07/22/19 10:30 Giardia lamblia Ag Negative (NEGATIVE) 07/22/19 10:30 Tissue Pathology To follow 07/23/19 18:08 - Plan (1) Diverticulitis Status: Acute Plan: ADMIT, NORMAL SALINE AT 125ML/HR, DOXYCYCLINE 100MG IV Q12H, HUMULIN R SLIDIDNG SCALE, LOVENOX 40MG SC DAILY, SURGICAL CONSULT, CONTINUE TO MONITOR (2) Cholecystitis Status: Acute Plan: STATUS POST CHOLECYSTECTOMY, CONTINUE TO MONITOR (3) Colitis Status: Acute (4) Campylobacter diarrhea Status: Acute
[2019-07-25] MEDS: NS 1000 ML 1,000 ML IV SCH ×2 (00:07→10:23)
[2019-07-25] MEDS: DILAUDID INJ IVP PRN ×2 (04:24→10:00)
[2019-07-25] MEDS: VANCOMYCIN 125 MG PO SCH ×2 (05:00→10:30)
[2019-07-25 05:54] LABS: BASOPHILS % (AUTO) 0.7 % (0.2-1.0); EOSINOPHILS # (AUTO) 0.3 x10^3/uL (0.0-0.2); EOSINOPHILS % (AUTO) 4.9 % (0.9-2.9); HEMATOCRIT 37.8 % (42.0-54.0); HEMOGLOBIN 13.4 g/dL (13.5-18.0); LYMPHOCYTES # (AUTO) 0.8 X10^3/uL (1.3-2.9); LYMPHOCYTES % (AUTO) 15.9 % (21.0-51.0); MEAN CORPUSCULAR HGB CONC 35.3 g/dL (33.0-35.0); MEAN CORPUSCULAR VOLUME 93.3 fL (80.0-100.0); MEAN PLATELET VOLUME 6.9 fL (7.4-11.0); MONOCYTES # (AUTO) 0.4 x10^3/uL (0.3-0.8); NEUTROPHILS # (AUTO) 3.8 x10^3/uL (2.2-4.8); NEUTROPHILS % (AUTO) 71.5 % (42.0-75.0); PLATELET COUNT 145 X10^3/uL (150.0-450.0); RED BLOOD COUNT 4.05 X10^6/uL (4.7-6.0); RED CELL DISTRIBUTION WIDTH 12.7 % (11.6-16.5); WHITE BLOOD COUNT 5.3 X10^3/uL (3.6-10.0)
[2019-07-25 06:03] LABS: ALANINE AMINOTRANSFERASE 41 Units/L (12-78); ALBUMIN 2.4 g/dL (3.4-5.0); ALKALINE PHOSPHATASE 49 Units/L (46-116); ASPARTATE AMINO TRANSFERASE 33 Units/L (15-37); BLOOD UREA NITROGEN 12 mg/dL (7-18); CALCIUM 7.6 mg/dL (8.5-10.1); CARBON DIOXIDE 24.5 mmol/L (21-32); CHLORIDE 105 mmol/L (98-107); COR CA(FOR HYPOALB) 8.9 mg/dL (8.5-10.1); COR NA(FOR HYPERGLY) 141 mmol/L (136-145); CREATININE 1.39 mg/dL (0.70-1.30); SODIUM 139 mmol/L (136-145); TOTAL PROTEIN 5.6 g/dL (6.4-8.2); eGFR NON BLACK RACES 53 (>60)
[2019-07-25] MEDS: FLAGYL IV PREMIX 500 MG BAG 500 MG/100 ML BAG IV SCH (06:20)
[2019-07-25] MEDS ORDERED: ZOFRAN INJ 4 MG VIAL IVP PRN (07:30)
[2019-07-25] MEDS ORDERED: ZOFRAN INJ 4 MG VIAL ONE (07:32)
[2019-07-25] MEDS: VIBRAMYCIN 100 MG in D5W 250 ML IV 250 ML IV SCH (09:30)
[2019-07-25] MEDS: LOVENOX INJ 40 MG SYR SC SCH (09:31)
[2019-07-25] MEDS: HumuLIN R SC PRN (11:48)
[2019-07-25 11:52] VITALS: BP 135/66
== END 2019-07-25 13:50 | disposition home or self-care (01) | DRG 445 ==
LOC: ER 09:58 → MED/SURG 15:22
PROVIDERS: ADMIT Internal Medicine; ATTEND Internal Medicine
DX: K57.92 Diverticulitis of intestine, part unspecified, without perforation or abscess without bleeding; A04.72 Enterocolitis due to Clostridium difficile, not specified as recurrent; K92.1 Melena; K82.8 Other specified diseases of gallbladder; K52.9 Noninfective gastroenteritis and colitis, unspecified; M47.896 Other spondylosis, lumbar region; R10.31 Right lower quadrant pain; E11.65 Type 2 diabetes mellitus with hyperglycemia; I10 Essential (primary) hypertension; K81.0 Acute cholecystitis; A04.5 Campylobacter enteritis; R10.11 Right upper quadrant pain; K66.0 Peritoneal adhesions (postprocedural) (postinfection)
CPT/HCPCS: 36415; 74177; 76705; 80053; 81001; 82270; 83630; 83690; 83735; 85025; 87045; 87328; 87329; 87427; 87449; 87493; 87899; 88304; 94760; 96365; 96367; 96372; 96374; 99100; 99284; A4216; A4222; J0330; J0713; J1170; J1650; J1815; J1956; J2250; J2405; J2704; J2710; J3010; J3475; J3490; J7030; J7050; J7060; S0030

== ENCOUNTER 2019-08-19 14:18 | Inpatient (IN) ==
[~2019-08-19 14:18] MED LIST: DIPRIVAN VIAL ONE; VERSED ONE; XYLOCAINE 2 % (PLAIN) ONE
[2019-08-19] MEDS ORDERED: NS 1000 ML 1,000 ML IV ONE (15:59)
--- NOTE | 2019-08-19 16:01 | DR.GENAD ---
HPI Time Seen Time Seen by Provider: 08/19/19 15:57 PCP Primary Care Physician: adeel HPI Comment HPI Comment: PATIENT IS 74YR OLD MALE IN ER WITH ABDOMINAL PAIN AND DIARRHEA.HISTORY C DIFF COLITIS. FINISHED PO VANCOMYCIN LAST WEEK FOR C DIFF INFECTION. DENIES FEVER. NO NAUSEA OR VOMITING. SLIGHT WEAKNESS PRESENT. Complaint/Symptoms Chief Complaint Doctors Comments: ABDOMINAL PAIN AND DIARRHEA SINCE LAST NIGHT. Chief Complaint:: pt stated he has had cdiff for a long time, took his last antibiotic last week and last night at midnight he started with diarrhea again. Nurses notes reviewed Nurses Notes Review: Yes Source History Provided: Patient Mode of Arrival Mode of Arrival: Ambulatory Timing Onset of Chief Complaint: 08/18/19 Came on: Suddenly Duration Duration: Constant Duration: Days Location Location: [facility]. Severity Severity: Moderate PMH PMH Past Medical History: Yes Past Medical History: Diabetes and Hypertension Past Surgical History: Yes Surgical History: Ortho Surgery Family History History of Family Medical Conditions: No Social History Does patient currently use any type of tobacco product: No Have you used tobacco products in the last 12 months: No Type of Tobacco Use: None Does any household member use tobacco: No Alcohol Use: None Do you use any recreational Drugs:: No Lives With: Family Lives Where: Home infectious screening In the last 2 months have you had wt loss of >10#?: NO Have you had fever, night sweats or hemotysis?: No Have you traveled outside the country in the last 6 months?: No Isolation: Standard ROS Review of Systems Constitutional: No Symptoms Reported, See HPI, Weakness and Fatigue; negative Fever Eyes: No Symptoms Reported and See HPI ENTM: No Symptoms Reported and See HPI; negative Nose Discharge and Nose Conges tion Respiratoy: No Symptoms Reported and See HPI; negative Short of Breath and Wheezing Cardiovascular: No Symptoms Reported and See HPI; negative Chest Pain Gastrointestinal/Abdominal: See HPI, Abdominal Pain and Diarrhea; negative Nausea and Vomiting Genitourinary: No Symptoms Reported and See HPI; negative Dysuria, Frequency and Hematuria Neurological: See HPI and Weakness; negative Headache and Dizziness Musculoskeletal: No Symptoms Reported and See HPI; negative Back Pain Integumentary: See HPI and Dryness Hematologic/Lymphatic: No Symptoms Reported and See HPI; negative Easy Bruising and Swollen Glands Endocrine: No Symptoms Reported and See HPI; negative Increased Thirst and Increased Urine Psychiatric: No Symptoms Reported and See HPI All Other Systems: Reviewed and Negative PE Vital Signs Vitals: Temperature 96.9 F Pulse Rate 110 Respiratory Rate 16 Blood Pressure [Left Arm] 135/66 Blood Pressure 135/84 O2 Sat by Pulse Oximetry 98 General Limitations: No Limitations General Appearance: Alert and In No Apparent Distress Head Head Exam: Normal Inspection and Atraumatic Eyes Eye exam: Normal Appearance and PERRL; negative Scleral Icterus and Conjunctival Injection ENT ENT Exam: Normal Exam, Normal Oropharynx, Normal External Ear Exam and TM's Normal Bilaterally External Ear Exam: Normal External Inspection; negative Mastoid Tenderness TM/Canal Exam: Bilateral: Normal Nose Exam: Normal Nose Exam; negative Sinus Tenderness Mouth Exam: Normal Inspection Throat Exam: Normal Inspection Neck Neck Exam: Normal Inspection and Trachea Midline; negative Tenderness and Lymphadenopathy Chest Chest Inspection: Normal Inspection and Symmetric Chest Wall Rise; negative Tenderness Respiratory Respiratory Exam: Normal Lung Sounds Bilat; negative Accessory Muscle Use, Chest Wall Tenderness and Respiratory Distress Respiratory Exam: Bilateral: Clear to Auscultation Cardiovascular Cardiovascular Exam: Regular Rate, Normal Rhythm and Normal Heart Sounds Abdominal Exam Abdominal Exam: Normal Bowel Sounds, Soft and Tenderness Abdominal Tenderness: Diffuse and Moderate Extremities Extremities Exam: Normal Inspection and Normal Capillary Refill; negative Tenderness, Edema and Calf Tenderness Back Back Exam: Normal Inspection; negative (R) CVA Tenderness and (L) CVA Tenderness Neurologic Neurological Exam: Alert, Oriented X3 and CN II-XII Intact; negative Motor Sensory Deficit Psychiatric Psychiatric Exam: Normal Affect and Normal Mood Skin Skin Exam: Dry MDM Additional Information Additional Information Obtained From: Family and Public Relations Writer Differential Diagnosis Differential Diagnosis: ABDOMINAL PAIN, C DIFF COLITIS, BOWEL OBST, DIVERTICULITIS. COURSE Treatment Treatment: SEE ORDERS. Consultation Consultation Comments: DISCUSSED PATIENT WITH DR. HERMOSILLO. HE WILL ADMIT PATIENT. Education/Counseling Education/Counseling: Patient Educated On: Diagnosis ROR Labs Reviewed Laboratory Results Reviewed?: Yes Result Diagrams: 08/22/19 05:41 08/22/19 05:41 Laboratory: 08/19/19 16:10 Stool Stool Culture - Final 08/19/19 16:10 Stool - Final WBC 13.9 X10^3/uL (3.6-10.0) H 08/19/19 16:24 RBC 5.29 X10^6/uL (4.7-6.0) 08/19/19 16:24 Hgb 17.1 g/dL (13.5-18.0) 08/19/19 16:24 Hct 49.2 % (42.0-54.0) 08/19/19 16:24 MCV 93.1 fL (80.0-100.0) 08/19/19 16:24 MCH 32.3 pg (27.0-34.0) 08/19/19 16: MCHC 34.7 g/dL (33.0-35.0) 08/19/19: RDW 13.5 % (11.6-16.5) 08/19/19 16: Plt Count 134 X10^3/uL (150.0-450.0) L 08/19/19: MPV 8.0 fL (7.4-11.0) 08/19/19: Neut % (Auto) 83.2 % (42.0-75.0) H 08/19/19 16:24 Lymph % (Auto) 8.9 % (21.0-51.0) L 08/19/19:24 [place] % (Auto) 6.8 % (0.0-13.0) 08/19/19:24 Eos % (Auto) 0.6 % (0.9-2.9) L 08/19/19 16: Baso % (Auto) 0.5 % (0.2-1.0) 08/19/19 16:24 Neut # (Auto) 11.6 x10^3/uL (2.2-4.8) H 08/19/19:24 Lymph # (Auto) 1.2 X10^3/uL (1.3-2.9) L 08/19/19 16:24 [place] # (Auto) 0.9 x10^3/uL (0.3-0.8) H 08/19/19 16:24 Eos # (Auto) 0.1 x10^3/uL (0.0-0.2) 08/19/19 16:24 Baso # (Auto) 0.1 X10^3/uL (0.0-0.1) 08/19/19 16:24 Absolute Nucleated RBC 0.2 /100WBC 08/19/19 16:24 Sodium 133 mmol/L (136-145) L 08/19/19 16:24 Corrected Sodium 139 mmol/L (136-145) 08/19/19 16:24 Potassium 4.4 mmol/L (3.5-5.1) 08/19/19 16:24 Chloride 99 mmol/L (98-107) 08/19/19 16:24 Carbon Dioxide 24.9 mmol/L (21-32) 08/19/19 16:24 BUN 20 mg/dL (7-18) H 08/19/19 16:24 Creatinine 1.92 mg/dL (0.70-1.30) H 08/19/19 16:24 Est GFR (MDRD) Af Amer 44 (>60) L 08/19/19 16:24 Est GFR (MDRD) Non-Af 37 (>60) L 08/19/19 16:24 Glucose 369 mg/dL (65-99) H 08/19/19 16:24 Calcium 8.9 mg/dL (8.5-10.1) 08/19/19 16:24 Corrected Calcium TNP 08/19/19 16:24 Total Bilirubin 2.50 mg/dL (0.2-1.0) H 08/19/19 16:24 AST 17 Units/L (15-37) 08/19/19 16:24 ALT 36 Units/L (12-78) 08/19/19 16:24 Alkaline Phosphatase 84 Units/L (46-116) 08/19/19 16:24 Total Protein 7.3 g/dL (6.4-8.2) 08/19/19 16:24 Albumin 3.7 g/dL (3.4-5.0) 08/19/19 16:24 Globulin 3.6 g/dL (2.5-4.5) 08/19/19 16:24 Albumin/Globulin Ratio 1.0 Ratio (1.1-2.1) L 08/19/19 16:24 Amylase 27 Units/L (25-115) 08/19/19 16:24 Lipase 92 Units/L (73-393) 08/19/19 16:24 Specimen Type Clean catch urine 08/19/19 18:31 Urine Color Yellow (YELLOW) 08/19/19 18:31 Urine Appearance Clear (CLEAR) 08/19/19 18:31 Urine pH 5.0 (5.0 - 8.0) 08/19/19 18:31 Ur Specific [place] 1.010 (1.000-1.030) 08/19/19 18:31 Urine Protein Negative (NEGATIVE) 08/19/19 18:31 Urine Glucose (UA) 4+ (NEGATIVE) 08/19/19 18:31 Urine Ketones 1+ (NEGATIVE) 08/19/19 18:31 Urine Occult Blood Negative (NEGATIVE) 08/19/19 18:31 Urine Nitrite Negative (NEGATIVE) 08/19/19 18:31 Urine Bilirubin Negative (NEGATIVE) 08/19/19 18:31 Urine Urobilinogen Normal (NORMAL) 08/19/19 18:31 Ur Leukocyte Esterase Negative (NEGATIVE) 08/19/19 18:31 Stool Description 40 grs brown loose 08/19/19 16:10 Stool Description 40 grs brown loose 08/19/19 16:10 Stl Occult Blood (IFOB) Positive (NEGATIVE) A 08/19/19 16:10 Stool for White Cells Positive (NEGATIVE) A 08/19/19 16:10 Stl C. diff Tox B Gene Positive (NEGATIVE) A 08/19/19 16:10 Stl C. diff 027-NAP1-BI Negative (NEGATIVE) 08/19/19 16:10 Stool H. pylori Ag Positive (NEGATIVE) A 08/19/19 16:10 C. difficile Toxin A&B Positive (NEGATIVE) A 08/19/19 16:10 Cryptosporid parvum Ag Negative (NEGATIVE) 08/19/19 16:10 Giardia lamblia Ag Negative (NEGATIVE) 08/19/19 16:10 Other Results Comments: IMPRESSION: CT ABD AND PELVIS REPORT. 1. Evidence of severe colitis. No evidence of perforation. Correlate with possible infectious, inflammatory, ischemic etiologies.VIS XRAY XRAY Interpreted by: Radiologist (REPORT NOTED AND DISCUSSED WITH PATIENT.) and Self Opioid Opioid Risk Tool Age (Alessio box if 16-45): No History of Preadolescent Sexual Abuse: No Total: 0 Total Score Risk Category: Low Risk Copyright: Amilcar MONTERO predicting aberrant behaviors Diagnosis Discharge Problem: C. difficile colitis, C. difficile diarrhea Abdominal pain Qualifiers: Abdominal location: generalized Qualified Code(s): R10.84 - Generalized abdominal pain Instructions Forms: Excuse From Work Patient Portal
[2019-08-19] MEDS ORDERED: NS 1000 ML 1,000 ML ONE (16:28)
[2019-08-19 16:33] LABS: BASOPHILS # (AUTO) 0.1 X10^3/uL (0.0-0.1); BASOPHILS % (AUTO) 0.5 % (0.2-1.0); EOSINOPHILS # (AUTO) 0.1 x10^3/uL (0.0-0.2); EOSINOPHILS % (AUTO) 0.6 % (0.9-2.9); HEMATOCRIT 49.2 % (42.0-54.0); HEMOGLOBIN 17.1 g/dL (13.5-18.0); LYMPHOCYTES # (AUTO) 1.2 X10^3/uL (1.3-2.9); LYMPHOCYTES % (AUTO) 8.9 % (21.0-51.0); MEAN CORPUSCULAR HEMOGLOBIN 32.3 pg (27.0-34.0); MEAN CORPUSCULAR HGB CONC 34.7 g/dL (33.0-35.0); MEAN CORPUSCULAR VOLUME 93.1 fL (80.0-100.0); MONOCYTES # (AUTO) 0.9 x10^3/uL (0.3-0.8); MONOCYTES % (AUTO) 6.8 % (0.0-13.0); NEUTROPHILS # (AUTO) 11.6 x10^3/uL (2.2-4.8); NEUTROPHILS % (AUTO) 83.2 % (42.0-75.0); PLATELET COUNT 134 X10^3/uL (150.0-450.0); RED BLOOD COUNT 5.29 X10^6/uL (4.7-6.0); RED CELL DISTRIBUTION WIDTH 13.5 % (11.6-16.5); WHITE BLOOD COUNT 13.9 X10^3/uL (3.6-10.0)
[2019-08-19 16:46] LABS: ALANINE AMINOTRANSFERASE 36 Units/L (12-78); ALBUMIN 3.7 g/dL (3.4-5.0); ALKALINE PHOSPHATASE 84 Units/L (46-116); AMYLASE 27 Units/L (25-115); ASPARTATE AMINO TRANSFERASE 17 Units/L (15-37); BLOOD UREA NITROGEN 20 mg/dL (7-18); CALCIUM 8.9 mg/dL (8.5-10.1); CARBON DIOXIDE 24.9 mmol/L (21-32); CHLORIDE 99 mmol/L (98-107); COR NA(FOR HYPERGLY) 139 mmol/L (136-145); CREATININE 1.92 mg/dL (0.70-1.30); LIPASE 92 Units/L (73-393); SODIUM 133 mmol/L (136-145); TOTAL PROTEIN 7.3 g/dL (6.4-8.2); eGFR NON BLACK RACES 37 (>60)
[2019-08-19 17:55] LABS: CRYPTOSPORIDIUM PARVUM ANTIGEN NEGATIVE (NEGATIVE); GIARDIA LAMBLIA ANTIGEN NEGATIVE (NEGATIVE)
[2019-08-19 18:58] LABS: BILIRUBIN,URINE NEGATIVE (NEGATIVE); BLOOD/HEMOGLOBIN,URINE NEGATIVE (NEGATIVE); GLUCOSE, URINE 4+ (NEGATIVE); KETONES,URINE 1+ (NEGATIVE); LEUKOCYTE ESTERASE ,URINE NEGATIVE (NEGATIVE); NITRITES,URINE NEGATIVE (NEGATIVE); PROTEIN,URINE NEGATIVE (NEGATIVE); UROBILINOGEN,URINE NORMAL (NORMAL)
[2019-08-19 19:18] LABS: APPEARANCE,URINE CLEAR (CLEAR); COLOR,URINE YELLOW (YELLOW)
--- NOTE | 2019-08-19 21:41 | CT ---
ABDOMEN/PELVIS W/O CONHISTORY: abdominal painsComparison:NoneTechnique:Multiple non contrast axial images of the abdomen and pelvis were obtained from the lung bases to the pubic symphysis.. Dose reduction techniques including Automated Exposure Control (AEC) and adjustment of mA and kV were utlized.Findings:The sensitivity for focal lesion detection within the solid abdominal viscera is diminished without the use of IV contrast.The heart is normal in size. There is no pericardial effusion. Lung bases are clear without focal consolidation, pleural effusion or pneumothorax.Liver and spleen are normal in size, contour. No focal lesions. No ductal dilitation. Gallbladder absent. The pancreas is unremarkable. Adrenal glands are normal. Kidneys are without hydronephrosis or nephrolithiasis.Severe inflammation of the colon extending from the splenic flexure to the rectum. No evidence of perforation. No abnormal appearing mesenteric or retroperitoneal lymph nodes. . No free fluid or fluid collections.The bladder is normal in appearance. Prostate unremarkable. No free fluid or abnormal pelvic lymph nodes.No aggressive osseous lesions.IMPRESSION:1. Evidence of severe colitis. No evidence of perforation. Correlate with possible infectious, inflammatory, ischemic etiologies.Electronically signed by: ADDI SHIPLEY (Aug 19, 2019 21:40:13)
[2019-08-19] MEDS ORDERED: PEPCID 20 MG IV PREMIX* 10 MG/25 ML BAG IV PRN (23:31)
[2019-08-19] MEDS ORDERED: VANCOMYCIN 125 MG PO SCH (23:31)
[2019-08-19] MEDS ORDERED: ZOFRAN INJ 4 MG VIAL IVP PRN (23:31)
[2019-08-19] MEDS ORDERED: FLAGYL TAB 500 MG PO ONE (23:33)
[2019-08-19] MEDS ORDERED: FLAGYL TAB 250 MG PO ONE (23:34)
[2019-08-19] MEDS ORDERED: VANCOMYCIN HCL PO ONE (23:42)
[2019-08-19] MEDS ORDERED: HumuLIN R ONE (23:50)
[2019-08-19] MEDS: HumuLIN R SUBCUT PRN (23:52)
[2019-08-20] MEDS: VANCOMYCIN HCL PO SCH ×5 (00:05→21:27)
[2019-08-20] MEDS ORDERED: NS 1000 ML 1,000 ML ONE (00:08)
[2019-08-20] MEDS: NS 1000 ML 1,000 ML IV SCH ×3 (00:10→21:24)
[2019-08-20 02:11] VITALS: BMI 29.2
[2019-08-20] MEDS: FLAGYL TAB 500 MG PO SCH ×3 (06:10→21:26)
[2019-08-20] MEDS: HumuLIN R SUBCUT PRN ×4 (06:38→21:25)
[2019-08-20 06:53] LABS: BASOPHILS % (AUTO) 0.3 % (0.2-1.0); EOSINOPHILS # (AUTO) 0.1 x10^3/uL (0.0-0.2); EOSINOPHILS % (AUTO) 0.9 % (0.9-2.9); LYMPHOCYTES % (AUTO) 9.2 % (21.0-51.0); MEAN CORPUSCULAR HEMOGLOBIN 32.3 pg (27.0-34.0); MEAN CORPUSCULAR VOLUME 92.1 fL (80.0-100.0); MEAN PLATELET VOLUME 8.2 fL (7.4-11.0); MONOCYTES # (AUTO) 0.9 x10^3/uL (0.3-0.8); MONOCYTES % (AUTO) 9.1 % (0.0-13.0); NEUTROPHILS # (AUTO) 8.3 x10^3/uL (2.2-4.8); NEUTROPHILS % (AUTO) 80.5 % (42.0-75.0); PLATELET COUNT 117 X10^3/uL (150.0-450.0); RED BLOOD COUNT 4.56 X10^6/uL (4.7-6.0); RED CELL DISTRIBUTION WIDTH 13.6 % (11.6-16.5); WHITE BLOOD COUNT 10.3 X10^3/uL (3.6-10.0)
[2019-08-20 07:03] LABS: HEMOGLOBIN 14.7 g/dL (13.5-18.0)
[2019-08-20 07:15] LABS: ALBUMIN 2.9 g/dL (3.4-5.0); CALCIUM 7.7 mg/dL (8.5-10.1); CARBON DIOXIDE 23.8 mmol/L (21-32); COR CA(FOR HYPOALB) 8.6 mg/dL (8.5-10.1); CREATININE 1.83 mg/dL (0.70-1.30); TOTAL PROTEIN 5.9 g/dL (6.4-8.2)
[2019-08-20] MEDS: ZYLOPRIM PO SCH (08:15)
[2019-08-20] MEDS: ZESTRIL TAB 5 MG PO SCH (08:15)
[2019-08-20] MEDS: NORVASC TAB 5 MG PO SCH (08:16)
[2019-08-20] MEDS: PROTONIX TAB 40 MG PO SCH ×2 (08:19→21:27)
[2019-08-20] MEDS: GLUCOTROL PO SCH ×2 (08:19→21:27)
[2019-08-20] MEDS: CLINIMIX 4.25 %/10 % 1,000 ML with MVI INJ (ADULT) 10 ML IV SCH ×2 (13:34)
--- NOTE | 2019-08-20 20:36 | DR.H&P ---
H&P - History & Physical for Day of: H&P Date: 08/19/19 - Chief Complaint Chief Complaint: ABDOMINAL PAIN, DIARRHEA - History of Present Illness History of Present Illness: IS A 74 YEAR OLD PATIENT OF OURS WHO PRESENTED TO THE ER WITH REPORTS OF ABDOMINAL PAIN AND DIARRHEA. HE HAS BEEN RECEIVING PO VANCOMYCIN FOR TREATMENT OF C-DIFF, BUT FINISHED HIS COURSE OF TREATMENT LAST WEEK. ABDOMINAL PAIN STARTED AGAIN ONE DAY PRIOR TO ARRIVAL. ON ARRIVAL TO THE ER, VITALS WERE 96.9-110-16-98%-135/84. LABS WERE OBTAINED. ABNORMAL LAB VALUES INCLUDE THE FOLLOWING: WBC 13.9, SODIUM 133, BUN 20, CREATININE 1.92, GLUCOSE 369, TOTAL BILI 2.50. STOOL STUDIES REVEALED THAT HE IS POSITIVE FOR OCCULT BLOOD, WHITE CELLS, H-PYLORI, AND C-DIFF. AN ABDOMEN/PELVIS CT WITHOUT CONTRAST WAS OBTAINED AND REVEALED: 1. Evidence of severe colitis. No evidence of perforation. Correlate with possible infectious, inflammatory, ischemic etiologies. HE WAS GIVEN FLAGYL MG PO X 1 AND A NORMAL SALINE BOLUS. HE WAS ADMITTED FOR FURTHER EVALUATION AND TREATMENT OF C-DIFF COLITIS, DIARRHEA, AND ABDOMINAL PAIN. HE WAS STARTED ON NORMAL SALINE AT 60ML/HR, TPN, HUMULIN R SLIDING SCALE, VANCOMYCIN 250MG PO Q6H, HUMULIN R SLIDING SCALE, FLAGYL 500MG PO TID, AND HOME MEDICATIONS WERE RESUMED. OTHERWISE, WE PLAN TO FOLLOW UP WITH AM LABS AND CONTINUE TO MONITOR. - Past Medical History Past Medical History: Hypertension, Diabetes - Past Surgical History Surgical History: Ortho Surgery - Social History Does patient currently use any type of tobacco product: No Have you used tobacco products in the last 12 months: No Type of Tobacco Use: None Does any household member use tobacco: No Alcohol Use: None Drug Use: None Prescription drug monitoring program results: PDMP reviewed and no concerns identified - Medications Home Medications: No Known Drug Allergies Allergy (Verified 08/19/19 14:19) CONTINUE taking the following medications insulin glargine [Lantus U-100 Insulin] 10 unit SUBCUT DAILY 08/19/19 [History] - Review of Systems Constitutional: No Symptoms Reported Eyes: No Symptoms Reported ENT: No Symptoms Reported Respiratory: No Symptoms Reported Cardiovascular: No Symptoms Reported Gastrointestinal: See HPI, Abdominal Pain, Diarrhea Genitourinary: No Symptoms Reported Musculoskeletal: No Symptoms Reported Skin: No Symptoms Reported Neurological: Weakness - Physical Exam Vital Signs: Temperature 99.7 F Pulse Rate [Right Brachial] 85 Pulse Rate 110 Respiratory Rate 18 Blood Pressure [Right Arm] 123/58 Blood Pressure [Left Arm] 135/66 Blood Pressure 135/84 O2 Sat by Pulse Oximetry 96 Oriented: Normal Eyes: Normal Ear: Normal Nose: Normal Throat: Normal Respiratory: Clear Throughout Cardiovascular: Normal : Normal Auscultation: Bowel Sounds: Increased Palpation: Normal Tenderness: Diffuse, Moderate. negative: Rebound, Guarding, Rigidity Skin: Normal Musculoskeletal: Normal Psychiatric: Normal Mood Description: Calm Affect: Normal Speech Pattern: Clear - Assessment/Plan (1) C. difficile colitis Status: Acute Plan: NORMAL SALINE AT 60ML/HR, TPN, HUMULIN R SLIDING SCALE, VANCOMYCIN 250MG PO Q6H, HUMULIN R SLIDING SCALE, FLAGYL 500MG PO TID (2) C. difficile diarrhea Status: Acute Plan: NORMAL SALINE AT 60ML/HR, TPN, HUMULIN R SLIDING SCALE, VANCOMYCIN 250MG PO Q6H, HUMULIN R SLIDING SCALE, FLAGYL 500MG PO TID (3) Abdominal pain Qualifiers: Abdominal location: generalized Qualified Code(s): R10.84 - Generalized abdominal pain Status: Acute - Allergies Allergies/Adverse Reactions: Allergies Allergy/AdvReac Type Severity Reaction Status Date / Time No Known Drug Allergies Allergy Verified 08/19/19 14:19
[2019-08-20] MEDS: SNACK - Diabetic Appropriate PO SCH (21:25)
[2019-08-21] MEDS: VANCOMYCIN HCL PO SCH ×4 (04:00→21:08)
[2019-08-21] MEDS: NS 1000 ML 1,000 ML IV SCH ×2 (05:42→16:15)
[2019-08-21] MEDS: FLAGYL TAB 500 MG PO SCH ×3 (05:42→21:09)
[2019-08-21] MEDS: HumuLIN R SUBCUT PRN ×3 (05:44→18:00)
[2019-08-21 06:18] LABS: BASOPHILS # (AUTO) 0.1 X10^3/uL (0.0-0.1); BASOPHILS % (AUTO) 0.5 % (0.2-1.0); EOSINOPHILS # (AUTO) 0.5 x10^3/uL (0.0-0.2); EOSINOPHILS % (AUTO) 4.7 % (0.9-2.9); HEMATOCRIT 42.9 % (42.0-54.0); LYMPHOCYTES # (AUTO) 1.7 X10^3/uL (1.3-2.9); LYMPHOCYTES % (AUTO) 15.9 % (21.0-51.0); MEAN CORPUSCULAR HEMOGLOBIN 32.3 pg (27.0-34.0); MEAN CORPUSCULAR HGB CONC 34.9 g/dL (33.0-35.0); MEAN CORPUSCULAR VOLUME 92.5 fL (80.0-100.0); MONOCYTES % (AUTO) 9.2 % (0.0-13.0); NEUTROPHILS # (AUTO) 7.3 x10^3/uL (2.2-4.8); NEUTROPHILS % (AUTO) 69.7 % (42.0-75.0); PLATELET COUNT 112 X10^3/uL (150.0-450.0); RED BLOOD COUNT 4.63 X10^6/uL (4.7-6.0); RED CELL DISTRIBUTION WIDTH 13.6 % (11.6-16.5); WHITE BLOOD COUNT 10.4 X10^3/uL (3.6-10.0)
[2019-08-21 06:41] LABS: ALBUMIN 2.8 g/dL (3.4-5.0); CALCIUM 7.8 mg/dL (8.5-10.1); CARBON DIOXIDE 20.7 mmol/L (21-32); COR CA(FOR HYPOALB) 8.8 mg/dL (8.5-10.1); CREATININE 1.78 mg/dL (0.70-1.30)
[2019-08-21] MEDS: ZYLOPRIM PO SCH (08:31)
[2019-08-21] MEDS: NORVASC TAB 5 MG PO SCH (08:31)
[2019-08-21] MEDS: ZESTRIL TAB 5 MG PO SCH (08:32)
[2019-08-21] MEDS: GLUCOTROL PO SCH ×2 (08:32→21:08)
[2019-08-21] MEDS: PROTONIX TAB 40 MG PO SCH ×2 (08:33→21:08)
[2019-08-21] MEDS: CLINIMIX 4.25 %/10 % 1,000 ML with MVI INJ (ADULT) 10 ML IV SCH ×2 (16:04)
[2019-08-21] MEDS ORDERED: HumuLIN R SUBCUT PRN (17:16)
[2019-08-21] MEDS: SNACK - Diabetic Appropriate PO SCH (21:05)
[2019-08-22] MEDS: NS 1000 ML 1,000 ML IV SCH ×2 (02:50→12:44)
[2019-08-22] MEDS: VANCOMYCIN HCL PO SCH ×4 (02:50→21:28)
[2019-08-22] MEDS: FLAGYL TAB 500 MG PO SCH ×3 (05:35→21:30)
[2019-08-22 06:05] LABS: PREALBUMIN 15.9 mg/dL (18-35.7)
[2019-08-22 06:06] LABS: BASOPHILS % (AUTO) 0.5 % (0.2-1.0); EOSINOPHILS # (AUTO) 0.4 x10^3/uL (0.0-0.2); EOSINOPHILS % (AUTO) 5.5 % (0.9-2.9); HEMATOCRIT 38.9 % (42.0-54.0); HEMOGLOBIN 13.7 g/dL (13.5-18.0); LYMPHOCYTES # (AUTO) 1.4 X10^3/uL (1.3-2.9); LYMPHOCYTES % (AUTO) 17.8 % (21.0-51.0); MEAN CORPUSCULAR HEMOGLOBIN 32.6 pg (27.0-34.0); MEAN CORPUSCULAR HGB CONC 35.4 g/dL (33.0-35.0); MEAN CORPUSCULAR VOLUME 92.2 fL (80.0-100.0); MONOCYTES # (AUTO) 0.7 x10^3/uL (0.3-0.8); MONOCYTES % (AUTO) 9.2 % (0.0-13.0); NEUTROPHILS # (AUTO) 5.3 x10^3/uL (2.2-4.8); PLATELET COUNT 110 X10^3/uL (150.0-450.0); RED BLOOD COUNT 4.22 X10^6/uL (4.7-6.0); RED CELL DISTRIBUTION WIDTH 13.5 % (11.6-16.5); WHITE BLOOD COUNT 7.8 X10^3/uL (3.6-10.0)
[2019-08-22] MEDS: HumuLIN R SUBCUT PRN (06:06)
[2019-08-22 06:13] LABS: ALBUMIN 2.5 g/dL (3.4-5.0); CALCIUM 7.3 mg/dL (8.5-10.1); COR CA(FOR HYPOALB) 8.5 mg/dL (8.5-10.1); CREATININE 1.71 mg/dL (0.70-1.30); MAGNESIUM 1.6 mg/dL (1.7-2.9); PHOSPHORUS 3.1 mg/dL (2.6-4.7); TOTAL PROTEIN 5.3 g/dL (6.4-8.2)
[2019-08-22] MEDS ORDERED: XYLOCAINE 1% and EPINEPHRINE 1:100,000 ONE (08:10)
[2019-08-22] MEDS: NORVASC TAB 5 MG PO SCH (09:05)
[2019-08-22] MEDS: ZYLOPRIM PO SCH (09:05)
[2019-08-22] MEDS: PROTONIX TAB 40 MG PO SCH ×2 (09:06→21:28)
[2019-08-22] MEDS: GLUCOTROL PO SCH ×2 (09:06→21:27)
[2019-08-22] MEDS: ZESTRIL TAB 5 MG PO SCH (09:06)
--- NOTE | 2019-08-22 10:47 | PCM.PROG ---
Progress Note - Progress Note for Day of Date of Exam: 08/21/19 - Subjective Subjective: IS BEING TREATED FOR C-DIFF COLITIS, DIARRHEA, ABDOMINAL PAIN, AND H-PYLORI. TODAY, HE IS ALERT AND ORIENTED, LYING IN BED ON MORNING ROUNDS. HE CONTINUES WITH COMPLAINTS OF ABDOMINAL PAIN AND DIARRHEA. HE ALSO REPORTS PAIN TO PERIANAL AREA. ON EXAMINATION, HEART IS REGULAR IN RATE AND RHYTHM. BILATERAL LUNGS ARE NOTED WITH DIMINISHED LUNG SOUNDS THROUGHOUT. ABDOMEN IS ROUND, SOFT, AND NOTED WITH DIFFUSE TENDERNESS. HYPERACTIVE BOWEL SOUNDS NOTED IN ALL QUADRANTS. THERE IS AN ABSCESS NOTED TO PERIANAL AREA. PATIENT REPORTS THAT THIS HAS BEEN PRESENT FOR THE PAST MONTH. HIS VITALS THIS MORNING ARE: 98.2-78-18-98%-116/62. LABS WERE OBTAINED. ABNORMAL LAB VALUES INCLUDE THE FOLLOWING: WBC 10.4, RBC 4.63, PLT COUNT 112, CARBON DIOXIDE 20.7, CREATININE 1.78, GLUCOSE 235, CALCIUM 7.8, TOTAL BILI 1.50, AST 14, TOTAL PROTEIN 6.0, ALBUMIN 2.8. STOOL CULTURES ARE PENDING. WE WILL CONSULT REGARDING THE PERIANAL ABSCESS TODAY. HE IS CURRENTLY RECEIVING NS AT 60 ML/HR, VANCOMYCIN 250MG PO Q6H, FLAGYL 500MG PO TID, PROTONIX 40MG PO BID, TPN, HUMULIN R SLIDIDNG SCALE, AND OTHER HOME MEDICATIONS WERE RESUMED. WE WILL CONTINUE WITH CURRENT PLAN OF CARE TODAY. OTHERWISE , WE WILL FOLLOW UP WITH AM LABS AND CONTINUE TO MONITOR. - Past Medical Family Social History Past Med/Fam/Surg Hx: No changes since H&P Allergies: Allergies No Known Drug Allergies Allergy (Verified 08/19/19 14:19) - Review of Systems ROS: No change since H&P - Vital Signs and I&O's Vital Signs: Temperature 98.3 F Pulse Rate [Right Brachial] 80 Pulse Rate 110 Respiratory Rate 18 Blood Pressure [Right Arm] 127/71 Blood Pressure [Left Arm] 135/66 Blood Pressure 135/84 O2 Sat by Pulse Oximetry 97 Intake and Output: Intake & Output 08/19/19 08/20/19 08/21/19 08/22/19 11:59 11:59 11:59 11:59 Intake Total 3120 / 3120 3036 / 3036 Balance 3120 / 3120 3036 / 3036 - Physical Exam Oriented: Normal Eyes: Normal Ear: Normal Nose: Normal Throat: Normal Respiratory: Generalized, Diminished Cardiovascular: Normal : Normal Auscultation: Bowel Sounds: Increased Palpation: Normal Tenderness: Diffuse, Moderate. negative: Rebound, Guarding, Rigidity Skin: Normal Musculoskeletal: Normal Psychiatric: Normal Mood Description: Calm Affect: Normal Speech Pattern: Clear, Appropriate - Laboratory and Diagnostics Result Diagrams: 08/22/19 05:41 08/22/19 05:41 Labs: 08/19/19 16:10 Stool Stool Culture - Final 08/19/19 16:10 Stool - Final Laboratory WBC 7.8 X10^3/uL (3.6-10.0) 08/22/19 05:41 RBC 4.22 X10^6/uL (4.7-6.0) L 08/22/19 05:41 Hgb 13.7 g/dL (13.5-18.0) 08/22/19 05:41 Hct 38.9 % (42.0-54.0) L 08/22/19 05:41 MCV 92.2 fL (80.0-100.0) 08/22/19 05:41 MCH 32.6 pg (27.0-34.0) 08/22/19 05:41 MCHC 35.4 g/dL (33.0-35.0) H 08/22/19 05:41 RDW 13.5 % (11.6-16.5) 08/22/19 05:41 Plt Count 110 X10^3/uL (150.0-450.0) L 08/22/19 05:41 MPV 8.0 fL (7.4-11.0) 08/22/19 05:41 Neut % (Auto) 67.0 % (42.0-75.0) 08/22/19 05:41 Lymph % (Auto) 17.8 % (21.0-51.0) L 08/22/19 05:41 [place] % (Auto) 9.2 % (0.0-13.0) 08/22/19 05:41 Eos % (Auto) 5.5 % (0.9-2.9) H 08/22/19 05:41 Baso % (Auto) 0.5 % (0.2-1.0) 08/22/19 05:41 Neut # (Auto) 5.3 x10^3/uL (2.2-4.8) H 08/22/19 05:41 Lymph # (Auto) 1.4 X10^3/uL (1.3-2.9) 08/22/19 05:41 [place] # (Auto) 0.7 x10^3/uL (0.3-0.8) 08/22/19 05:41 Eos # (Auto) 0.4 x10^3/uL (0.0-0.2) H 08/22/19 05:41 Baso # (Auto) 0.0 X10^3/uL (0.0-0.1) 08/22/19 05:41 Absolute Nucleated RBC 0.1 /100WBC 08/22/19 05:41 Sodium 138 mmol/L (136-145) 08/22/19 05:41 Corrected Sodium 141 mmol/L (136-145) 08/22/19 05:41 Potassium 3.3 mmol/L (3.5-5.1) L 08/22/19 05:41 Chloride 107 mmol/L (98-107) 08/22/19 05:41 Carbon Dioxide 20.0 mmol/L (21-32) L 08/22/19 05:41 BUN 16 mg/dL (7-18) 08/22/19 05:41 Creatinine 1.71 mg/dL (0.70-1.30) H 08/22/19 05:41 Est GFR (MDRD) Af Amer 51 (>60) L 08/22/19 05:41 Est GFR (MDRD) Non-Af 42 (>60) L 08/22/19 05:41 Glucose 209 mg/dL (65-99) H 08/22/19 05:41 POC Glucose (mg/dL) 151 mg/dL (65-99) H 08/22/19 10:37 Calcium 7.3 mg/dL (8.5-10.1) L 08/22/19 05:41 Corrected Calcium 8.5 mg/dL (8.5-10.1) 08/22/19 05:41 Phosphorus 3.1 mg/dL (2.6-4.7) 08/22/19 05:41 Magnesium 1.6 mg/dL (1.7-2.9) L 08/22/19 05:41 Total Bilirubin 0.90 mg/dL (0.2-1.0) 08/22/19 05:41 AST 12 Units/L (15-37) L 08/22/19 05:41 ALT 19 Units/L (12-78) 08/22/19 05:41 Alkaline Phosphatase 45 Units/L (46-116) L 08/22/19 05:41 Total Protein 5.3 g/dL (6.4-8.2) L 08/22/19 05:41 Albumin 2.5 g/dL (3.4-5.0) L 08/22/19 05:41 Globulin 2.8 g/dL (2.5-4.5) 08/22/19 05:41 Albumin/Globulin Ratio 0.9 Ratio (1.1-2.1) L 08/22/19 05:41 Prealbumin 15.9 mg/dL (18-35.7) L 08/22/19 05:41 Triglycerides 70 mg/dL (0-150) 08/22/19 05:41 Amylase 19 Units/L (25-115) L 08/20/19 05:38 Lipase 81 Units/L (73-393) 08/20/19 05:38 Specimen Type Clean catch urine 08/19/19 18:31 Urine Color Yellow (YELLOW) 08/19/19 18:31 Urine Appearance Clear (CLEAR) 08/19/19 18:31 Urine pH 5.0 (5.0 - 8.0) 08/19/19 18:31 Ur Specific [place] 1.010 (1.000-1.030) 08/19/19 18:31 Urine Protein Negative (NEGATIVE) 08/19/19 18:31 Urine Glucose (UA) 4+ (NEGATIVE) 08/19/19 18:31 Urine Ketones 1+ (NEGATIVE) 08/19/19 18:31 Urine Occult Blood Negative (NEGATIVE) 08/19/19 18:31 Urine Nitrite Negative (NEGATIVE) 08/19/19 18:31 Urine Bilirubin Negative (NEGATIVE) 08/19/19 18:31 Urine Urobilinogen Normal (NORMAL) 08/19/19 18:31 Ur Leukocyte Esterase Negative (NEGATIVE) 08/19/19 18:31 Stool Description 40 grs brown loose 08/19/19 16:10 Stool Description 40 grs brown loose 08/19/19 16:10 Stl Occult Blood (IFOB) Positive (NEGATIVE) A 08/19/19 16:10 Stool for White Cells Positive (NEGATIVE) A 08/19/19 16:10 Stl C. diff Tox B Gene Positive (NEGATIVE) A 08/19/19 16:10 Stl C. diff 027-NAP1-BI Negative (NEGATIVE) 08/19/19 16:10 Stool H. pylori Ag Positive (NEGATIVE) A 08/19/19 16:10 C. difficile Toxin A&B Positive (NEGATIVE) A 08/19/19 16:10 Cryptosporid parvum Ag Negative (NEGATIVE) 08/19/19 16:10 Giardia lamblia Ag Negative (NEGATIVE) 08/19/19 16:10 - Plan (1) C. difficile colitis Status: Acute Plan: NORMAL SALINE AT 60ML/HR, TPN, HUMULIN R SLIDING SCALE, VANCOMYCIN 250MG PO Q6H, HUMULIN R SLIDING SCALE, FLAGYL 500MG PO TID (2) C. difficile diarrhea Status: Acute Plan: NORMAL SALINE AT 60ML/HR, TPN, HUMULIN R SLIDING SCALE, VANCOMYCIN 250MG PO Q6H, HUMULIN R SLIDING SCALE, FLAGYL 500MG PO TID (3) Abdominal pain Status: Acute Qualifiers: Abdominal location: generalized Qualified Code(s): R10.84 - Generalized abdominal pain
[2019-08-22] MEDS: NORCO 5/325 MG TAB PO PRN ×2 (11:19→18:49)
[2019-08-22] MEDS ORDERED: KLOR-CON PO PRN (14:45)
[2019-08-22] MEDS ORDERED: POTASSIUM CHL 60 MEQ/NS 0.45% 500 ML IV PRN (14:45)
[2019-08-22] MEDS ORDERED: POTASSIUM CHLORIDE LIQ 20 MEQ UDC PO PRN (14:45)
[2019-08-22] MEDS ORDERED: POTASSIUM CHL 40 MEQ/NS 0.45% 500 ML IV PRN (14:45)
[2019-08-22] MEDS ORDERED: MICRO K EXTEN CAP 10 MEQ PO PRN (14:45)
[2019-08-22] MEDS ORDERED: K-RIDER 10 MEQ/NS 100 ML 10 MEQ/100 ML BAG IV PRN (14:45)
[2019-08-22] MEDS: MAGNESIUM SULFATE 1 GRAM/100 mL PREMIX 1 GM/100 ML BAG IV PRN ×2 (15:50→17:02)
--- NOTE | 2019-08-22 19:19 | PCM.PROG ---
Progress Note - Progress Note for Day of Date of Exam: 08/22/19 - Subjective Subjective: IS BEING TREATED FOR C-DIFF COLITIS, DIARRHEA, ABDOMINAL PAIN, H-PYLORI, AND A PERIANAL ABSCESS. . TODAY, HE IS ALERT AND ORIENTED, LYING IN BED ON MORNING ROUNDS. HE CONTINUES WITH COMPLAINTS OF ABDOMINAL PAIN AND DIARRHEA. ON EXAMINATION, HEART IS REGULAR IN RATE AND RHYTHM. BILATERAL LUNGS ARE NOTED WITH DIMINISHED LUNG SOUNDS THROUGHOUT. ABDOMEN IS ROUND, SOFT, AND NOTED WITH DIFFUSE TENDERNESS. HYPERACTIVE BOWEL SOUNDS NOTED IN ALL QUADRANTS. THERE IS AN ABSCESS NOTED TO PERIANAL AREA. HIS VITALS THIS MORNING ARE: 98.3-80-18-97%-127/71. LABS WERE OBTAINED. ABNORMAL LAB VALUES INCLUDE THE FOLLOWING: RBC 4.22, HCT 38.9, PLT COUNT 110, POTASSIUM 3.3, CARBON DIOXIDE 20.0, CREATININE 1.71, GLUCOSE 209, CALCIUM 7.3, MAGNESIUM 1.6, AST 12, ALK PHOS 45, TOTAL PROTEIN 5.3, ALBUMIN 2.5, PREALBUMIN 15.9. STOOL CULTURES ARE PENDING. CONSULTED WITH PATIENT YESTERDAY REGARDING THE PERIANAL ABSCESS. HE PLANS FOR I&D OF THE ABSCESS TODAY AT BEDSIDE. WE ARE IN AGREEMENT WITH PLANS. HE IS CURRENTLY RECEIVING NS AT 60 ML/HR, VANCOMYCIN 250MG PO Q6H, FLAGYL 500MG PO TID, PROTONIX 40MG PO BID, TPN, HUMULIN R SLIDIDNG SCALE, AND OTHER HOME MEDICATIONS WERE RESUMED. WE WILL CONTINUE WITH CURRENT PLAN OF CARE TODAY. OTHERWISE , WE WILL FOLLOW UP WITH AM LABS AND CONTINUE TO MONITOR. - Past Medical Family Social History Past Med/Fam/Surg Hx: No changes since H&P Allergies: Allergies No Known Drug Allergies Allergy (Verified 08/19/19 14:19) - Review of Systems ROS: No change since H&P - Vital Signs and I&O's Vital Signs: Temperature 98.3 F Pulse Rate [Right Brachial] 72 Pulse Rate 110 Respiratory Rate 20 Blood Pressure [Right Arm] 119/59 Blood Pressure [Left Arm] 135/66 Blood Pressure 135/84 O2 Sat by Pulse Oximetry 98 Intake and Output: Intake & Output 08/20/19 08/21/19 08/22/19 08/23/19 11:59 11:59 11:59 11:59 Intake Total 60 / 60 3120 / 3120 3036 / 3036 2099 Balance 60 / 60 3120 / 3120 3036 / 3036 2099 - Physical Exam Oriented: Normal Eyes: Normal Ear: Normal Nose: Normal Throat: Normal Respiratory: Generalized, Diminished Cardiovascular: Normal : Normal Auscultation: Bowel Sounds: Increased Palpation: Normal Tenderness: Diffuse, Moderate. negative: Rebound, Guarding, Rigidity Skin: Normal Musculoskeletal: Normal Psychiatric: Normal Mood Description: Calm Affect: Normal Speech Pattern: Clear, Appropriate - Laboratory and Diagnostics Result Diagrams: 08/22/19 05:41 08/22/19 05:41 Labs: 08/19/19 16:10 Stool Stool Culture - Final 08/19/19 16:10 Stool - Final Laboratory WBC 7.8 X10^3/uL (3.6-10.0) 08/22/19 05:41 RBC 4.22 X10^6/uL (4.7-6.0) L 08/22/19 05:41 Hgb 13.7 g/dL (13.5-18.0) 08/22/19 05:41 Hct 38.9 % (42.0-54.0) L 08/22/19 05:41 MCV 92.2 fL (80.0-100.0) 08/22/19 05:41 MCH 32.6 pg (27.0-34.0) 08/22/19 05:41 MCHC 35.4 g/dL (33.0-35.0) H 08/22/19 05:41 RDW 13.5 % (11.6-16.5) 08/22/19 05:41 Plt Count 110 X10^3/uL (150.0-450.0) L 08/22/19 05:41 MPV 8.0 fL (7.4-11.0) 08/22/19 05:41 Neut % (Auto) 67.0 % (42.0-75.0) 08/22/19 05:41 Lymph % (Auto) 17.8 % (21.0-51.0) L 08/22/19 05:41 [place] % (Auto) 9.2 % (0.0-13.0) 08/22/19 05:41 Eos % (Auto) 5.5 % (0.9-2.9) H 08/22/19 05:41 Baso % (Auto) 0.5 % (0.2-1.0) 08/22/19 05:41 Neut # (Auto) 5.3 x10^3/uL (2.2-4.8) H 08/22/19 05:41 Lymph # (Auto) 1.4 X10^3/uL (1.3-2.9) 08/22/19 05:41 [place] # (Auto) 0.7 x10^3/uL (0.3-0.8) 08/22/19 05:41 Eos # (Auto) 0.4 x10^3/uL (0.0-0.2) H 08/22/19 05:41 Baso # (Auto) 0.0 X10^3/uL (0.0-0.1) 08/22/19 05:41 Absolute Nucleated RBC 0.1 /100WBC 08/22/19 05:41 Sodium 138 mmol/L (136-145) 08/22/19 05:41 Corrected Sodium 141 mmol/L (136-145) 08/22/19 05:41 Potassium 3.3 mmol/L (3.5-5.1) L 08/22/19 05:41 Chloride 107 mmol/L (98-107) 08/22/19 05:41 Carbon Dioxide 20.0 mmol/L (21-32) L 08/22/19 05:41 BUN 16 mg/dL (7-18) 08/22/19 05:41 Creatinine 1.71 mg/dL (0.70-1.30) H 08/22/19 05:41 Est GFR (MDRD) Af Amer 51 (>60) L 08/22/19 05:41 Est GFR (MDRD) Non-Af 42 (>60) L 08/22/19 05:41 Glucose 209 mg/dL (65-99) H 08/22/19 05:41 POC Glucose (mg/dL) 176 mg/dL (65-99) H 08/22/19 16:55 Calcium 7.3 mg/dL (8.5-10.1) L 08/22/19 05:41 Corrected Calcium 8.5 mg/dL (8.5-10.1) 08/22/19 05:41 Phosphorus 3.1 mg/dL (2.6-4.7) 08/22/19 05:41 Magnesium 1.6 mg/dL (1.7-2.9) L 08/22/19 15:05 Total Bilirubin 0.90 mg/dL (0.2-1.0) 08/22/19 05:41 AST 12 Units/L (15-37) L 08/22/19 05:41 ALT 19 Units/L (12-78) 08/22/19 05:41 Alkaline Phosphatase 45 Units/L (46-116) L 08/22/19 05:41 Total Protein 5.3 g/dL (6.4-8.2) L 08/22/19 05:41 Albumin 2.5 g/dL (3.4-5.0) L 08/22/19 05:41 Globulin 2.8 g/dL (2.5-4.5) 08/22/19 05:41 Albumin/Globulin Ratio 0.9 Ratio (1.1-2.1) L 08/22/19 05:41 Prealbumin 15.9 mg/dL (18-35.7) L 08/22/19 05:41 Triglycerides 70 mg/dL (0-150) 08/22/19 05:41 Amylase 19 Units/L (25-115) L 08/20/19 05:38 Lipase 81 Units/L (73-393) 08/20/19 05:38 Specimen Type Clean catch urine 08/19/19 18:31 Urine Color Yellow (YELLOW) 08/19/19 18:31 Urine Appearance Clear (CLEAR) 08/19/19 18:31 Urine pH 5.0 (5.0 - 8.0) 08/19/19 18:31 Ur Specific [place] 1.010 (1.000-1.030) 08/19/19 18:31 Urine Protein Negative (NEGATIVE) 08/19/19 18:31 Urine Glucose (UA) 4+ (NEGATIVE) 08/19/19 18: Urine Ketones 1+ (NEGATIVE) 08/19/19 18:31 Urine Occult Blood Negative (NEGATIVE) 08/19/19 18: Urine Nitrite Negative (NEGATIVE) 08/19/19 18: Urine Bilirubin Negative (NEGATIVE) 08/19/19 18:31 Urine Urobilinogen Normal (NORMAL) 08/19/19 18:31 Ur Leukocyte Esterase Negative (NEGATIVE) 08/19/19 18:31 Stool Description 40 grs brown loose 08/19/19 16:10 Stool Description 40 grs brown loose 08/19/19 16:10 Stl Occult Blood (IFOB) Positive (NEGATIVE) A 08/19/19 16:10 Stool for White Cells Positive (NEGATIVE) A 08/19/19 16:10 Stl C. diff Tox B Gene Positive (NEGATIVE) A 08/19/19 16:10 Stl C. diff 027-NAP1-BI Negative (NEGATIVE) 08/19/19 16:10 Stool H. pylori Ag Positive (NEGATIVE) A 08/19/19 16:10 C. difficile Toxin A&B Positive (NEGATIVE) A 08/19/19 16:10 Cryptosporid parvum Ag Negative (NEGATIVE) 08/19/19 16:10 Giardia lamblia Ag Negative (NEGATIVE) 08/19/19 16:10 - Plan (1) C. difficile colitis Status: Acute Plan: NORMAL SALINE AT 60ML/HR, TPN, HUMULIN R SLIDING SCALE, VANCOMYCIN 250MG PO Q6H, HUMULIN R SLIDING SCALE, FLAGYL 500MG PO TID (2) C. difficile diarrhea Status: Acute Plan: NORMAL SALINE AT 60ML/HR, TPN, HUMULIN R SLIDING SCALE, VANCOMYCIN 250MG PO Q6H, HUMULIN R SLIDING SCALE, FLAGYL 500MG PO TID (3) Abdominal pain Status: Acute Qualifiers: Abdominal location: generalized Qualified Code(s): R10.84 - Generalized abdominal pain (4) Perianal abscess Status: Acute Plan: I&D TODAY, CONTINUE TO MONITOR
[2019-08-22] MEDS: SNACK - Diabetic Appropriate PO SCH (20:30)
[2019-08-22] MEDS ORDERED: DRUG FILTER EXTENSION SET ONE (21:21)
[2019-08-22] MEDS: CLINIMIX 4.25 %/10 % 1,000 ML with MVI INJ (ADULT) 10 ML IV SCH ×2 (21:27)
[2019-08-22] MEDS: BETADINE SOLN TOP SCH (21:30)
[2019-08-23] MEDS: VANCOMYCIN HCL PO SCH ×4 (03:59→20:47)
[2019-08-23] MEDS: FLAGYL TAB 500 MG PO SCH ×3 (05:30→22:49)
[2019-08-23] MEDS: BETADINE SOLN TOP SCH ×3 (06:50→22:49)
[2019-08-23 07:02] LABS: ALBUMIN 2.4 g/dL (3.4-5.0); CALCIUM 7.6 mg/dL (8.5-10.1); CARBON DIOXIDE 21.3 mmol/L (21-32); COR CA(FOR HYPOALB) 8.9 mg/dL (8.5-10.1); CREATININE 1.62 mg/dL (0.70-1.30); TOTAL PROTEIN 5.2 g/dL (6.4-8.2)
[2019-08-23] MEDS: NS 1000 ML 1,000 ML IV SCH ×4 (07:32→17:54)
[2019-08-23] MEDS: K-DUR TAB 20 MEQ PO PRN (09:02)
[2019-08-23] MEDS: NORVASC TAB 5 MG PO SCH (09:03)
[2019-08-23] MEDS: ZESTRIL TAB 5 MG PO SCH (09:03)
[2019-08-23] MEDS: ZYLOPRIM PO SCH (09:03)
[2019-08-23] MEDS: PROTONIX TAB 40 MG PO SCH ×2 (09:04→20:46)
[2019-08-23] MEDS: GLUCOTROL PO SCH ×2 (09:04→20:46)
[2019-08-23] MEDS: HumuLIN R SUBCUT PRN ×2 (10:32→18:35)
--- NOTE | 2019-08-23 10:56 | DR.PROGNOT ---
Hospital Progress Notes - Progress Note for Day of: Progress Note Date: 08/23/19 - Chief Complaint Chief Complaint: feeling much better after draining deneen anal abscess . mild drainage . still having diarrhea . - Past Medical Family Social History Past Med/Fam/Surg Hx: No changes since H&P Allergies: Allergies No Known Drug Allergies Allergy (Verified 08/19/19 14:19) - Review Of Systems ROS: No change since H&P - Vital Signs Vital Signs: Temperature 98.3 F Pulse Rate [Right Brachial] 75 Pulse Rate 110 Respiratory Rate 18 Blood Pressure [Right Arm] 119/68 Blood Pressure [Left Arm] 135/66 Blood Pressure 135/84 O2 Sat by Pulse Oximetry 96 - Physical Exam Oriented: Normal Eyes: Normal Ear: Normal Nose: Normal Throat: Normal Respiratory: Generalized, Diminished Cardiovascular: Normal : Normal GI:Auscultation: Increased GI:Palpation: Normal GI: Tenderness: Diffuse, Moderate. negative: Rebound, Guarding, Rigidity Skin: Normal Musculoskeletal: Normal Psychiatric: Normal Mood Description: Calm Affect: Normal Speech Pattern: Clear, Appropriate - Laboratory and Diagnostics Result Diagrams: 08/22/19 05:41 08/23/19 05:35 Labs: 08/19/19 16:10 Stool Stool Culture - Final 08/19/19 16:10 Stool - Final Laboratory WBC 7.8 X10^3/uL (3.6-10.0) 08/22/19 05:41 RBC 4.22 X10^6/uL (4.7-6.0) L 08/22/19 05:41 Hgb 13.7 g/dL (13.5-18.0) 08/22/19 05:41 Hct 38.9 % (42.0-54.0) L 08/22/19 05:41 MCV 92.2 fL (80.0-100.0) 08/22/19 05:41 MCH 32.6 pg (27.0-34.0) 08/22/19 05:41 MCHC 35.4 g/dL (33.0-35.0) H 08/22/19 05:41 RDW 13.5 % (11.6-16.5) 08/22/19 05:41 Plt Count 110 X10^3/uL (150.0-450.0) L 08/22/19 05:41 MPV 8.0 fL (7.4-11.0) 08/22/19 05:41 Neut % (Auto) 67.0 % (42.0-75.0) 08/22/19 05:41 Lymph % (Auto) 17.8 % (21.0-51.0) L 08/22/19 05:41 [place] % (Auto) 9.2 % (0.0-13.0) 08/22/19 05:41 Eos % (Auto) 5.5 % (0.9-2.9) H 08/22/19 05:41 Baso % (Auto) 0.5 % (0.2-1.0) 08/22/19 05:41 Neut # (Auto) 5.3 x10^3/uL (2.2-4.8) H 08/22/19 05:41 Lymph # (Auto) 1.4 X10^3/uL (1.3-2.9) 08/22/19 05:41 [place] # (Auto) 0.7 x10^3/uL (0.3-0.8) 08/22/19 05:41 Eos # (Auto) 0.4 x10^3/uL (0.0-0.2) H 08/22/19 05:41 Baso # (Auto) 0.0 X10^3/uL (0.0-0.1) 08/22/19 05:41 Absolute Nucleated RBC 0.1 /100WBC 08/22/19 05:41 Sodium 140 mmol/L (136-145) 08/23/19 05:35 Corrected Sodium 141 mmol/L (136-145) 08/23/19 05:35 Potassium 3.4 mmol/L (3.5-5.1) L 08/23/19 05:35 Chloride 110 mmol/L (98-107) H 08/23/19 05:35 Carbon Dioxide 21.3 mmol/L (21-32) 08/23/19 05:35 BUN 14 mg/dL (7-18) 08/23/19 05:35 Creatinine 1.62 mg/dL (0.70-1.30) H 08/23/19 05:35 Est GFR (MDRD) Af Amer 54 (>60) L 08/23/19 05:35 Est GFR (MDRD) Non-Af 45 (>60) L 08/23/19 05:35 Glucose 161 mg/dL (65-99) H 08/23/19 05:35 POC Glucose (mg/dL) 161 mg/dL (65-99) H 08/23/19 01:05 Calcium 7.6 mg/dL (8.5-10.1) L 08/23/19 05:35 Corrected Calcium 8.9 mg/dL (8.5-10.1) 08/23/19 05:35 Phosphorus 3.1 mg/dL (2.6-4.7) 08/22/19 05:41 Magnesium 1.6 mg/dL (1.7-2.9) L 08/22/19 15:05 Total Bilirubin 0.70 mg/dL (0.2-1.0) 08/23/19 05:35 AST 21 Units/L (15-37) 08/23/19 05:35 ALT 24 Units/L (12-78) 08/23/19 05:35 Alkaline Phosphatase 49 Units/L (46-116) 08/23/19 05:35 Total Protein 5.2 g/dL (6.4-8.2) L 08/23/19 05:35 Albumin 2.4 g/dL (3.4-5.0) L 08/23/19 05:35 Globulin 2.8 g/dL (2.5-4.5) 08/23/19 05:35 Albumin/Globulin Ratio 0.9 Ratio (1.1-2.1) L 08/23/19 05:35 Prealbumin 15.9 mg/dL (18-35.7) L 08/22/19 05:41 Triglycerides 70 mg/dL (0-150) 08/22/19 05:41 Amylase 19 Units/L (25-115) L 08/20/19 05:38 Lipase 81 Units/L (73-393) 08/20/19 05:38 Specimen Type Clean catch urine 08/19/19 18:31 Urine Color Yellow (YELLOW) 08/19/19 18:31 Urine Appearance Clear (CLEAR) 08/19/19 18:31 Urine pH 5.0 (5.0 - 8.0) 08/19/19 18:31 Ur Specific [place] 1.010 (1.000-1.030) 08/19/19 18:31 Urine Protein Negative (NEGATIVE) 08/19/19 18:31 Urine Glucose (UA) 4+ (NEGATIVE) 08/19/19 18:31 Urine Ketones 1+ (NEGATIVE) 08/19/19 18:31 Urine Occult Blood Negative (NEGATIVE) 08/19/19 18:31 Urine Nitrite Negative (NEGATIVE) 08/19/19 18:31 Urine Bilirubin Negative (NEGATIVE) 08/19/19 18:31 Urine Urobilinogen Normal (NORMAL) 08/19/19 18:31 Ur Leukocyte Esterase Negative (NEGATIVE) 08/19/19 18:31 Stool Description 40 grs brown loose 08/19/19 16:10 Stool Description 40 grs brown loose 08/19/19 16:10 Stl Occult Blood (IFOB) Positive (NEGATIVE) A 08/19/19 16:10 Stool for White Cells Positive (NEGATIVE) A 08/19/19 16:10 Stl C. diff Tox B Gene Positive (NEGATIVE) A 08/19/19 16:10 Stl C. diff 027-NAP1-BI Negative (NEGATIVE) 08/19/19 16:10 Stool H. pylori Ag Positive (NEGATIVE) A 08/19/19 16:10 C. difficile Toxin A&B Positive (NEGATIVE) A 08/19/19 16:10 Cryptosporid parvum Ag Negative (NEGATIVE) 08/19/19 16:10 Giardia lamblia Ag Negative (NEGATIVE) 08/19/19 16:10 - Assessment and Plan 1: deneen anal abscess .s/p I&D . recurrent C Dif colitis . same local care and ATB . future colonoscopy . - Problem Patient Problems: Patient Problems C. difficile colitis (Acute) A04.72 C. difficile diarrhea (Acute) A04.72 Abdominal pain (Acute) R10.9 Perianal abscess (Acute) K61.0
[2019-08-23] MEDS: LANTUS SC SCH (11:10)
[2019-08-23] MEDS: NORCO 5/325 MG TAB PO PRN (18:33)
[2019-08-23] MEDS ORDERED: SNACK - Diabetic Appropriate PO SCH (20:00)
[2019-08-23] MEDS: SNACK - Diabetic Appropriate PO SCH (20:30)
[2019-08-23] MEDS: CLINIMIX 4.25 %/10 % 1,000 ML with MVI INJ (ADULT) 10 ML IV SCH ×2 (20:42)
[2019-08-24] MEDS: HumuLIN R SUBCUT PRN ×2 (00:56→09:49)
[2019-08-24] MEDS: VANCOMYCIN HCL PO SCH ×4 (02:31→20:42)
[2019-08-24] MEDS: NORCO 5/325 MG TAB PO PRN ×5 (04:53→23:00)
[2019-08-24] MEDS: FLAGYL TAB 500 MG PO SCH ×3 (05:01→22:30)
[2019-08-24] MEDS: BETADINE SOLN TOP SCH (05:01)
--- NOTE | 2019-08-24 06:31 | CT ---
HISTORYCOLITIS, ABD PAINSTUDYCT ABDOMEN/PELVIS W/O IV CONCOMPARISONCT 08/19/2019TECHNIQUEMultiple axial images of the abdomen and pelvis were obtained from the lung bases to the pubic symphysis without the administration of IV contrast. Dose reduction techniques including Automated Exposure Control (AEC) and adjustment of mA and kV were utilized.FINDINGSThe visualized portions of the lung bases are unremarkable .The liver and spleen display no abnormalities.Prior cholecystectomy. No biliary ductal dilation.No pancreatic abnormality is seen.The adrenal glands appear normal.Increased perinephric streaky densities could be from poor renal function, similar to prior study. There is a probable exophytic cyst associated with the lower pole of the right kidney measuring 1.2 cm, unchanged. Ureters and bladder appear normal.Left-sided colitis changes with possible mild involvement of the ascending colon, also. Distribution is similar to prior study. Possible slight worsening of adjacent inflammation and edema in the peritoneum. Normal appendix is seen.No abnormalities are seen of the reproductive organs.Abdominal aorta is normal in size.No suspicious lymphadenopathy.Mild free pelvic fluid. No free intraperitoneal air.There is grade 2 spondylolisthesis at L5-S1 pars defects at L5.IMPRESSIONColitis is similar to prior study with possible slight increase in adjacent inflammation edema in the peritoneum. No evidence of bowel perforation.Electronically signed by: Anselmo Martinez (Aug 24, 2019 06:30:08)
[2019-08-24 06:48] LABS: BASOPHILS % (AUTO) 0.5 % (0.2-1.0); EOSINOPHILS # (AUTO) 0.4 x10^3/uL (0.0-0.2); HEMATOCRIT 36.8 % (42.0-54.0); LYMPHOCYTES # (AUTO) 1.4 X10^3/uL (1.3-2.9); LYMPHOCYTES % (AUTO) 22.4 % (21.0-51.0); MEAN CORPUSCULAR HEMOGLOBIN 32.3 pg (27.0-34.0); MEAN CORPUSCULAR HGB CONC 35.4 g/dL (33.0-35.0); MEAN CORPUSCULAR VOLUME 91.3 fL (80.0-100.0); MEAN PLATELET VOLUME 7.4 fL (7.4-11.0); MONOCYTES # (AUTO) 0.6 x10^3/uL (0.3-0.8); MONOCYTES % (AUTO) 9.2 % (0.0-13.0); NEUTROPHILS # (AUTO) 3.7 x10^3/uL (2.2-4.8); NEUTROPHILS % (AUTO) 60.9 % (42.0-75.0); PLATELET COUNT 136 X10^3/uL (150.0-450.0); RED BLOOD COUNT 4.03 X10^6/uL (4.7-6.0); RED CELL DISTRIBUTION WIDTH 13.4 % (11.6-16.5); WHITE BLOOD COUNT 6.1 X10^3/uL (3.6-10.0)
[2019-08-24 06:59] LABS: ALBUMIN 2.4 g/dL (3.4-5.0); CALCIUM 7.5 mg/dL (8.5-10.1); CARBON DIOXIDE 22.3 mmol/L (21-32); COR CA(FOR HYPOALB) 8.8 mg/dL (8.5-10.1); CREATININE 1.58 mg/dL (0.70-1.30); TOTAL PROTEIN 5.2 g/dL (6.4-8.2)
[2019-08-24] MEDS: ZYLOPRIM PO SCH (08:45)
[2019-08-24] MEDS: PROTONIX TAB 40 MG PO SCH ×2 (08:45→20:41)
[2019-08-24] MEDS: K-DUR TAB 20 MEQ PO PRN (08:45)
[2019-08-24] MEDS: GLUCOTROL PO SCH ×2 (08:45→20:41)
[2019-08-24] MEDS: NORVASC TAB 5 MG PO SCH (08:46)
[2019-08-24] MEDS: ZESTRIL TAB 5 MG PO SCH (08:46)
[2019-08-24] MEDS: LANTUS SC SCH (08:46)
[2019-08-24] MEDS: NS 1000 ML 1,000 ML IV SCH ×2 (09:47→13:50)
[2019-08-24] MEDS: CLINIMIX 4.25 %/10 % 1,000 ML with MVI INJ (ADULT) 10 ML IV SCH ×2 (22:30)
[2019-08-25] MEDS: SNACK - Diabetic Appropriate PO SCH (01:55)
[2019-08-25] MEDS: VANCOMYCIN HCL PO SCH ×2 (03:44→08:38)
[2019-08-25] MEDS: NORCO 5/325 MG TAB PO PRN ×3 (03:45→10:53)
[2019-08-25] MEDS: NS 1000 ML 1,000 ML IV SCH ×2 (05:24→10:53)
[2019-08-25] MEDS: FLAGYL TAB 500 MG PO SCH (05:24)
[2019-08-25 06:15] LABS: BASOPHILS # (AUTO) 0.1 X10^3/uL (0.0-0.1); BASOPHILS % (AUTO) 1.1 % (0.2-1.0); EOSINOPHILS # (AUTO) 0.4 x10^3/uL (0.0-0.2); EOSINOPHILS % (AUTO) 7.2 % (0.9-2.9); HEMATOCRIT 40.2 % (42.0-54.0); HEMOGLOBIN 14.2 g/dL (13.5-18.0); LYMPHOCYTES # (AUTO) 1.3 X10^3/uL (1.3-2.9); LYMPHOCYTES % (AUTO) 23.3 % (21.0-51.0); MEAN CORPUSCULAR HGB CONC 35.4 g/dL (33.0-35.0); MEAN CORPUSCULAR VOLUME 90.5 fL (80.0-100.0); MEAN PLATELET VOLUME 7.5 fL (7.4-11.0); MONOCYTES # (AUTO) 0.5 x10^3/uL (0.3-0.8); MONOCYTES % (AUTO) 8.9 % (0.0-13.0); NEUTROPHILS # (AUTO) 3.4 x10^3/uL (2.2-4.8); NEUTROPHILS % (AUTO) 59.5 % (42.0-75.0); PLATELET COUNT 137 X10^3/uL (150.0-450.0); RED BLOOD COUNT 4.45 X10^6/uL (4.7-6.0); RED CELL DISTRIBUTION WIDTH 13.6 % (11.6-16.5); WHITE BLOOD COUNT 5.6 X10^3/uL (3.6-10.0)
[2019-08-25 06:24] LABS: CALCIUM 8.2 mg/dL (8.5-10.1); CARBON DIOXIDE 22.6 mmol/L (21-32); CREATININE 1.57 mg/dL (0.70-1.30); MAGNESIUM 1.7 mg/dL (1.7-2.9); PHOSPHORUS 4.3 mg/dL (2.6-4.7)
[2019-08-25] MEDS: GLUCOTROL PO SCH (08:37)
[2019-08-25] MEDS: NORVASC TAB 5 MG PO SCH (08:38)
[2019-08-25] MEDS: ZYLOPRIM PO SCH (08:38)
[2019-08-25] MEDS: ZESTRIL TAB 5 MG PO SCH (08:38)
[2019-08-25] MEDS: PROTONIX TAB 40 MG PO SCH (08:38)
[2019-08-25] MEDS: LANTUS SC SCH (08:40)
[2019-08-25] MEDS ORDERED: XYLOCAINE OINT 5% TOP PRN (10:02)
[2019-08-25] MEDS ORDERED: EMLA CREAM ONE (10:24)
[2019-08-25] MEDS ORDERED: EMLA CREAM TOP PRN (10:26)
[2019-08-25 11:02] VITALS: BP 157/86
--- NOTE | 2019-08-26 21:47 | PCM.PROG ---
Progress Note - Progress Note for Day of Date of Exam: 08/23/19 - Subjective Subjective: IS BEING TREATED FOR C-DIFF COLITIS, DIARRHEA, ABDOMINAL PAIN, H-PYLORI, AND A PERIANAL ABSCESS. . TODAY, HE IS ALERT AND ORIENTED, LYING IN BED ON MORNING ROUNDS. HE CONTINUES WITH COMPLAINTS OF ABDOMINAL PAIN AND DIARRHEA. ON EXAMINATION, HEART IS REGULAR IN RATE AND RHYTHM. BILATERAL LUNGS ARE NOTED WITH DIMINISHED LUNG SOUNDS THROUGHOUT. ABDOMEN IS ROUND, SOFT, AND NOTED WITH DIFFUSE TENDERNESS. HYPERACTIVE BOWEL SOUNDS NOTED IN ALL QUADRANTS. THERE IS AN ABSCESS NOTED TO PERIANAL AREA. HIS VITALS THIS MORNING ARE: 97.7-84-18-96%-135/71. LABS WERE OBTAINED. ABNORMAL LAB VALUES INCLUDE THE FOLLOWING: RBC 4.22, HCT 38.9, PLT COUNT 110, POTASSIUM 3.4, CHLORIDE 110, CREATININE 1.62, GLUCOSE 161, CALCIUM 7.6, TOTAL PROTEIN 5.2, ALBUMIN 2.4. STOOL CULTURES ARE PENDING. A BEDSIDE I&D OF PERIANAL ABSCESS WAS PERFORMED AT BEDSIDE YESTERDAY. PACKING WAS INSERTED. WILL CONTINUE PACKING CHANGES AND DRESSINGS. HE IS CURRENTLY RECEIVING NS AT 60 ML/HR, VANCOMYCIN 250MG PO Q6H, FLAGYL 500MG PO TID, PROTONIX 40MG PO BID, TPN, HUMULIN R SLIDIDNG SCALE, AND OTHER HOME MEDICATIONS WERE RESUMED. WE WILL CONTINUE WITH CURRENT PLAN OF CARE TODAY AND REPEAT AN ABDOMEN/PELVIS CT WITHOUT CONTRAST IN THE MORNING. OTHERWISE, WE WILL FOLLOW UP WITH AM LABS AND CONTINUE TO MONITOR. - Past Medical Family Social History Past Med/Fam/Surg Hx: No changes since H&P Allergies: Allergies No Known Drug Allergies Allergy (Verified 08/19/19 14:19) - Review of Systems ROS: No change since H&P - Vital Signs and I&O's Vital Signs: Temperature 98.5 F Pulse Rate [Right Brachial] 76 Pulse Rate 110 Respiratory Rate 20 Blood Pressure [Right Arm] 157/86 Blood Pressure [Left Arm] 135/66 Blood Pressure 135/84 O2 Sat by Pulse Oximetry 97 Intake and Output: Intake & Output 08/24/19 08/25/19 08/26/19 08/27/19 11:59 11:59 11:59 11:59 Intake Total 3900 / 3900 3921 / 3921 Balance 3900 / 3900 3921 / 3921 - Physical Exam Oriented: Normal Eyes: Normal Ear: Normal Nose: Normal Throat: Normal Respiratory: Generalized, Diminished Cardiovascular: Normal : Normal Auscultation: Bowel Sounds: Increased Tenderness: Diffuse, Moderate. negative: Rebound, Guarding, Rigidity Skin: Normal Musculoskeletal: Normal Psychiatric: Normal Mood Description: Calm Affect: Normal Speech Pattern: Clear, Appropriate - Laboratory and Diagnostics Result Diagrams: 08/25/19 05:35 08/25/19 05:35 Labs: 08/19/19 16:10 Stool Stool Culture - Final 08/19/19 16:10 Stool - Final Laboratory WBC 5.6 X10^3/uL (3.6-10.0) 08/25/19 05:35 RBC 4.45 X10^6/uL (4.7-6.0) L 08/25/19 05:35 Hgb 14.2 g/dL (13.5-18.0) 08/25/19 05:35 Hct 40.2 % (42.0-54.0) L 08/25/19 05:35 MCV 90.5 fL (80.0-100.0) 08/25/19 05:35 MCH 32.0 pg (27.0-34.0) 08/25/19 05:35 MCHC 35.4 g/dL (33.0-35.0) H 08/25/19 05:35 RDW 13.6 % (11.6-16.5) 08/25/19 05:35 Plt Count 137 X10^3/uL (150.0-450.0) L 08/25/19 05:35 MPV 7.5 fL (7.4-11.0) 08/25/19 05:35 Neut % (Auto) 59.5 % (42.0-75.0) 08/25/19 05:35 Lymph % (Auto) 23.3 % (21.0-51.0) 08/25/19 05:35 [place] % (Auto) 8.9 % (0.0-13.0) 08/25/19 05:35 Eos % (Auto) 7.2 % (0.9-2.9) H 08/25/19 05:35 Baso % (Auto) 1.1 % (0.2-1.0) H 08/25/19 05:35 Neut # (Auto) 3.4 x10^3/uL (2.2-4.8) 08/25/19 05:35 Lymph # (Auto) 1.3 X10^3/uL (1.3-2.9) 08/25/19 05:35 [place] # (Auto) 0.5 x10^3/uL (0.3-0.8) 08/25/19 05:35 Eos # (Auto) 0.4 x10^3/uL (0.0-0.2) H 08/25/19 05:35 Baso # (Auto) 0.1 X10^3/uL (0.0-0.1) 08/25/19 05:35 Absolute Nucleated RBC 0.0 /100WBC 08/25/19 05:35 Sodium 140 mmol/L (136-145) 08/25/19 05:35 Corrected Sodium 141 mmol/L (136-145) 08/25/19 05:35 Potassium 3.7 mmol/L (3.5-5.1) 08/25/19 05:35 Chloride 109 mmol/L (98-107) H 08/25/19 05:35 Carbon Dioxide 22.6 mmol/L (21-32) 08/25/19 05:35 BUN 17 mg/dL (7-18) 08/25/19 05:35 Creatinine 1.57 mg/dL (0.70-1.30) H 08/25/19 05:35 Est GFR (MDRD) Af Amer 56 (>60) L 08/25/19 05:35 Est GFR (MDRD) Non-Af 46 (>60) L 08/25/19 05:35 Glucose 139 mg/dL (65-99) H 08/25/19 05:35 POC Glucose (mg/dL) 124 mg/dL (65-99) H 08/25/19 01:43 Calcium 8.2 mg/dL (8.5-10.1) L 08/25/19 05:35 Corrected Calcium 8.8 mg/dL (8.5-10.1) 08/24/19 05:39 Phosphorus 4.3 mg/dL (2.6-4.7) 08/25/19 05:35 Magnesium 1.7 mg/dL (1.7-2.9) 08/25/19 05:35 Total Bilirubin 0.50 mg/dL (0.2-1.0) 08/24/19 05:39 AST 27 Units/L (15-37) 08/24/19 05:39 ALT 29 Units/L (12-78) 08/24/19 05:39 Alkaline Phosphatase 54 Units/L (46-116) 08/24/19 05:39 Total Protein 5.2 g/dL (6.4-8.2) L 08/24/19 05:39 Albumin 2.4 g/dL (3.4-5.0) L 08/24/19 05:39 Globulin 2.8 g/dL (2.5-4.5) 08/24/19 05:39 Albumin/Globulin Ratio 0.9 Ratio (1.1-2.1) L 08/24/19 05:39 Prealbumin 15.9 mg/dL (18-35.7) L 08/22/19 05:41 Triglycerides 93 mg/dL (0-150) 08/25/19 05:35 Amylase 19 Units/L (25-115) L 08/20/19 05:38 Lipase 81 Units/L (73-393) 08/20/19 05:38 Specimen Type Clean catch urine 08/19/19 18:31 Urine Color Yellow (YELLOW) 08/19/19 18:31 Urine Appearance Clear (CLEAR) 08/19/19 18:31 Urine pH 5.0 (5.0 - 8.0) 08/19/19 18:31 Ur Specific [place] 1.010 (1.000-1.030) 08/19/19 18:31 Urine Protein Negative (NEGATIVE) 08/19/19 18:31 Urine Glucose (UA) 4+ (NEGATIVE) 08/19/19 18:31 Urine Ketones 1+ (NEGATIVE) 08/19/19 18:31 Urine Occult Blood Negative (NEGATIVE) 08/19/19 18:31 Urine Nitrite Negative (NEGATIVE) 08/19/19 18:31 Urine Bilirubin Negative (NEGATIVE) 08/19/19 18:31 Urine Urobilinogen Normal (NORMAL) 08/19/19 18:31 Ur Leukocyte Esterase Negative (NEGATIVE) 08/19/19 18:31 Stool Description 40 grs brown loose 08/19/19 16:10 Stool Description 40 grs brown loose 08/19/19 16:10 Stl Occult Blood (IFOB) Positive (NEGATIVE) A 08/19/19 16:10 Stool for White Cells Positive (NEGATIVE) A 08/19/19 16:10 Stl C. diff Tox B Gene Positive (NEGATIVE) A 08/19/19 16:10 Stl C. diff 027-NAP1-BI Negative (NEGATIVE) 08/19/19 16:10 Stool H. pylori Ag Positive (NEGATIVE) A 08/19/19 16:10 C. difficile Toxin A&B Positive (NEGATIVE) A 08/19/19 16:10 Cryptosporid parvum Ag Negative (NEGATIVE) 08/19/19 16:10 Giardia lamblia Ag Negative (NEGATIVE) 08/19/19 16:10 - Plan (1) C. difficile colitis Status: Acute Plan: NORMAL SALINE AT 60ML/HR, TPN, HUMULIN R SLIDING SCALE, VANCOMYCIN 250MG PO Q6H, HUMULIN R SLIDING SCALE, FLAGYL 500MG PO TID (2) C. difficile diarrhea Status: Acute Plan: NORMAL SALINE AT 60ML/HR, TPN, HUMULIN R SLIDING SCALE, VANCOMYCIN 250MG PO Q6H, HUMULIN R SLIDING SCALE, FLAGYL 500MG PO TID (3) Abdominal pain Status: Acute Qualifiers: Abdominal location: generalized Qualified Code(s): R10.84 - Generalized abdominal pain (4) Perianal abscess Status: Acute Plan: STATUS POST I&D, WOUND CARE, CONTINUE TO MONITOR
--- NOTE | 2019-08-26 21:52 | PCM.PROG ---
Progress Note - Progress Note for Day of Date of Exam: 08/24/19 - Subjective Subjective: IS BEING TREATED FOR C-DIFF COLITIS, DIARRHEA, ABDOMINAL PAIN, H-PYLORI, AND A PERIANAL ABSCESS. . TODAY, HE IS ALERT AND ORIENTED, LYING IN BED ON MORNING ROUNDS. HE CONTINUES WITH COMPLAINTS OF ABDOMINAL PAIN AND DIARRHEA. ON EXAMINATION, HEART IS REGULAR IN RATE AND RHYTHM. BILATERAL LUNGS ARE NOTED WITH DIMINISHED LUNG SOUNDS THROUGHOUT. ABDOMEN IS ROUND, SOFT, AND NOTED WITH DIFFUSE TENDERNESS. HYPERACTIVE BOWEL SOUNDS NOTED IN ALL QUADRANTS. THERE IS AN ABSCESS NOTED TO PERIANAL AREA. HIS VITALS THIS MORNING ARE: 98.1-67-18-99%-129/68. LABS WERE OBTAINED. ABNORMAL LAB VALUES INCLUDE THE FOLLOWING: RBC 4.03, HGB 13.0, HCT 36.8, POTASSIUM 3.4, CHLORIDE 111, CREATININE 1.58, GLUCOSE 114, CALCIUM 7.5, TOTAL PROTEIN 5.2, ALBUMIN 2.4. STOOL CULTURES ARE PENDING. A BEDSIDE I&D OF PERIANAL ABSCESS WAS PERFORMED AT BEDSIDE TWO DAYS AGO. PACKING WAS INSERTED. WILL CONTINUE PACKING CHANGES AND DRESSINGS. AN ABDOMEN/PELVIS CT WAS REPEATED THIS MORNING AND REVEALED: Colitis is similar to prior study with possible slight increase in adjacent inflammation edema in the peritoneum. No evidence of bowel perforation. HE IS CURRENTLY RECEIVING NS AT 60 ML/HR, VANCOMYCIN 250MG PO Q6H, FLAGYL 500MG PO TID, PROTONIX 40MG PO BID, TPN, HUMULIN R SLIDIDNG SCALE, AND OTHER HOME MEDICATIONS WERE RESUMED. WE WILL CONTINUE WITH CURRENT PLAN OF CARE TODAY. OTHERWISE, WE WILL FOLLOW UP WITH AM LABS AND CONTINUE TO MONITOR. - Past Medical Family Social History Past Med/Fam/Surg Hx: No changes since H&P Allergies: Allergies No Known Drug Allergies Allergy (Verified 08/19/19 14:19) - Review of Systems ROS: No change since H&P - Vital Signs and I&O's Vital Signs: Temperature 98.5 F Pulse Rate [Right Brachial] 76 Pulse Rate 110 Respiratory Rate 20 Blood Pressure [Right Arm] 157/86 Blood Pressure [Left Arm] 135/66 Blood Pressure 135/84 O2 Sat by Pulse Oximetry 97 Intake and Output: Intake & Output 08/24/19 08/25/19 08/26/19 08/27/19 11:59 11:59 11:59 11:59 Intake Total 3900 / 3900 3921 / 3921 Balance 3900 / 3900 3921 / 3921 - Physical Exam Oriented: Normal Eyes: Normal Ear: Normal Nose: Normal Throat: Normal Respiratory: Generalized, Diminished Cardiovascular: Normal : Normal Auscultation: Bowel Sounds: Increased Tenderness: Diffuse, Moderate. negative: Rebound, Guarding, Rigidity Skin: Normal Musculoskeletal: Normal Psychiatric: Normal Mood Description: Calm Affect: Normal Speech Pattern: Clear, Appropriate - Laboratory and Diagnostics Result Diagrams: 08/25/19 05:35 08/25/19 05:35 Labs: 08/19/19 16:10 Stool Stool Culture - Final 08/19/19 16:10 Stool - Final Laboratory WBC 5.6 X10^3/uL (3.6-10.0) 08/25/19 05:35 RBC 4.45 X10^6/uL (4.7-6.0) L 08/25/19 05:35 Hgb 14.2 g/dL (13.5-18.0) 08/25/19 05:35 Hct 40.2 % (42.0-54.0) L 08/25/19 05:35 MCV 90.5 fL (80.0-100.0) 08/25/19 05:35 MCH 32.0 pg (27.0-34.0) 08/25/19 05:35 MCHC 35.4 g/dL (33.0-35.0) H 08/25/19 05:35 RDW 13.6 % (11.6-16.5) 08/25/19 05:35 Plt Count 137 X10^3/uL (150.0-450.0) L 08/25/19 05:35 MPV 7.5 fL (7.4-11.0) 08/25/19 05:35 Neut % (Auto) 59.5 % (42.0-75.0) 08/25/19 05:35 Lymph % (Auto) 23.3 % (21.0-51.0) 08/25/19 05:35 [place] % (Auto) 8.9 % (0.0-13.0) 08/25/19 05:35 Eos % (Auto) 7.2 % (0.9-2.9) H 08/25/19 05:35 Baso % (Auto) 1.1 % (0.2-1.0) H 08/25/19 05:35 Neut # (Auto) 3.4 x10^3/uL (2.2-4.8) 08/25/19 05:35 Lymph # (Auto) 1.3 X10^3/uL (1.3-2.9) 08/25/19 05:35 [place] # (Auto) 0.5 x10^3/uL (0.3-0.8) 08/25/19 05:35 Eos # (Auto) 0.4 x10^3/uL (0.0-0.2) H 08/25/19 05:35 Baso # (Auto) 0.1 X10^3/uL (0.0-0.1) 08/25/19 05:35 Absolute Nucleated RBC 0.0 /100WBC 08/25/19 05:35 Sodium 140 mmol/L (136-145) 08/25/19 05:35 Corrected Sodium 141 mmol/L (136-145) 08/25/19 05:35 Potassium 3.7 mmol/L (3.5-5.1) 08/25/19 05:35 Chloride 109 mmol/L (98-107) H 08/25/19 05:35 Carbon Dioxide 22.6 mmol/L (21-32) 08/25/19 05:35 BUN 17 mg/dL (7-18) 08/25/19 05:35 Creatinine 1.57 mg/dL (0.70-1.30) H 08/25/19 05:35 Est GFR (MDRD) Af Amer 56 (>60) L 08/25/19 05:35 Est GFR (MDRD) Non-Af 46 (>60) L 08/25/19 05:35 Glucose 139 mg/dL (65-99) H 08/25/19 05:35 POC Glucose (mg/dL) 124 mg/dL (65-99) H 08/25/19 01:43 Calcium 8.2 mg/dL (8.5-10.1) L 08/25/19 05:35 Corrected Calcium 8.8 mg/dL (8.5-10.1) 08/24/19 05:39 Phosphorus 4.3 mg/dL (2.6-4.7) 08/25/19 05:35 Magnesium 1.7 mg/dL (1.7-2.9) 08/25/19 05:35 Total Bilirubin 0.50 mg/dL (0.2-1.0) 08/24/19 05:39 AST 27 Units/L (15-37) 08/24/19 05:39 ALT 29 Units/L (12-78) 08/24/19 05:39 Alkaline Phosphatase 54 Units/L (46-116) 08/24/19 05:39 Total Protein 5.2 g/dL (6.4-8.2) L 08/24/19 05:39 Albumin 2.4 g/dL (3.4-5.0) L 08/24/19 05:39 Globulin 2.8 g/dL (2.5-4.5) 08/24/19 05:39 Albumin/Globulin Ratio 0.9 Ratio (1.1-2.1) L 08/24/19 05:39 Prealbumin 15.9 mg/dL (18-35.7) L 08/22/19 05:41 Triglycerides 93 mg/dL (0-150) 08/25/19 05:35 Amylase 19 Units/L (25-115) L 08/20/19 05:38 Lipase 81 Units/L (73-393) 08/20/19 05:38 Specimen Type Clean catch urine 08/19/19 18:31 Urine Color Yellow (YELLOW) 08/19/19 18:31 Urine Appearance Clear (CLEAR) 08/19/19 18:31 Urine pH 5.0 (5.0 - 8.0) 08/19/19 18:31 Ur Specific [place] 1.010 (1.000-1.030) 08/19/19 18:31 Urine Protein Negative (NEGATIVE) 08/19/19 18:31 Urine Glucose (UA) 4+ (NEGATIVE) 08/19/19 18: Urine Ketones 1+ (NEGATIVE) 08/19/19 18: Urine Occult Blood Negative (NEGATIVE) 08/19/19 18: Urine Nitrite Negative (NEGATIVE) 08/19/19 18: Urine Bilirubin Negative (NEGATIVE) 08/19/19 18: Urine Urobilinogen Normal (NORMAL) 08/19/19 18: Ur Leukocyte Esterase Negative (NEGATIVE) 08/19/19 18:31 Stool Description 40 grs brown loose 08/19/19 16:10 Stool Description 40 grs brown loose 08/19/19 16:10 Stl Occult Blood (IFOB) Positive (NEGATIVE) A 08/19/19 16:10 Stool for White Cells Positive (NEGATIVE) A 08/19/19 16:10 Stl C. diff Tox B Gene Positive (NEGATIVE) A 08/19/19 16:10 Stl C. diff 027-NAP1-BI Negative (NEGATIVE) 08/19/19 16:10 Stool H. pylori Ag Positive (NEGATIVE) A 08/19/19 16:10 C. difficile Toxin A&B Positive (NEGATIVE) A 08/19/19 16:10 Cryptosporid parvum Ag Negative (NEGATIVE) 08/19/19 16:10 Giardia lamblia Ag Negative (NEGATIVE) 08/19/19 16:10 - Plan (1) C. difficile colitis Status: Acute Plan: NORMAL SALINE AT 60ML/HR, TPN, HUMULIN R SLIDING SCALE, VANCOMYCIN 250MG PO Q6H, HUMULIN R SLIDING SCALE, FLAGYL 500MG PO TID (2) C. difficile diarrhea Status: Acute Plan: NORMAL SALINE AT 60ML/HR, TPN, HUMULIN R SLIDING SCALE, VANCOMYCIN 250MG PO Q6H, HUMULIN R SLIDING SCALE, FLAGYL 500MG PO TID (3) Abdominal pain Status: Acute Qualifiers: Abdominal location: generalized Qualified Code(s): R10.84 - Generalized abdominal pain (4) Perianal abscess Status: Acute Plan: STATUS POST I&D, WOUND CARE, CONTINUE TO MONITOR
== END 2019-08-25 12:00 | disposition home or self-care (01) | DRG 372 ==
LOC: ER 14:18 → MED/SURG 23:36
PROVIDERS: ADMIT Internal Medicine; ATTEND Internal Medicine
DX: R10.84 Generalized abdominal pain; R19.7 Diarrhea, unspecified; I10 Essential (primary) hypertension; E11.65 Type 2 diabetes mellitus with hyperglycemia; A04.72 Enterocolitis due to Clostridium difficile, not specified as recurrent; K61.0 Anal abscess; R94.4 Abnormal results of kidney function studies; B96.81 Helicobacter pylori [H. pylori] as the cause of diseases classified elsewhere
CPT/HCPCS: 36415; 74176; 80048; 80053; 81003; 82150; 82270; 83630; 83690; 83735; 84100; 84134; 84478; 85025; 87045; 87324; 87328; 87329; 87338; 87427; 87449; 87493; 87899; 96365; 96367; 96372; 99284; A4222; B4189; J1815; J2250; J2405; J2704; J3475; J7030